=== PATIENT | male | born 1980 | race Caucasian/White ===

== ENCOUNTER 2018-06-10 15:56 | Inpatient (IN) | payer OTHER ==
[2018-06-10] MEDS ORDERED: ONDANSETRON 4 MG INJ IV (17:30)
[2018-06-10] MEDS ORDERED: DOCUSATE SODIUM 100 MG CAP PO (17:30)
[2018-06-10] MEDS ORDERED: ACETAMINOPHEN 325 MG TAB PO (17:30)
[2018-06-10] MEDS ORDERED: MAGNESIUM HYDROXIDE 30ML CUP PO (17:30)
[2018-06-10] MEDS ORDERED: NACL 0.9% 3 ML SYG IV (17:30)
[2018-06-10] MEDS: FUROSEMIDE 40 MG INJ IV (18:00)
[2018-06-10] MEDS: GUAIFENESIN/DM 5ML CUP PO (19:50)
[2018-06-10] MEDS: FAMOTIDINE 20 MG TAB PO (20:19)
[2018-06-11] MEDS: FUROSEMIDE 40 MG INJ IV ×3 (05:35→17:36)
[2018-06-11 05:59] LABS: ADD MAN DIFF? NO
[2018-06-11 06:09] LABS: WHITE BLOOD COUNT 5.7 10^3/ul (4.8-10.8)
[2018-06-11 06:09] LABS: BASOPHIL # 0.1 10^3/ul (0.0-0.1); BASOPHILS % 0.9 % (0.0-2.0); EOSINOPHILS # 0.1 10^3/ul (0.0-0.5); EOSINOPHILS % 1.1 % (0.0-7.0); HEMATOCRIT 39.8 % (42.0-52.0); HEMOGLOBIN 12.6 g/dl (14.0-18.0); LYMPHOCYTES # 1.5 10^3/ul (0.8-2.9); LYMPHOCYTES % 25.9 % (15.0-51.0); MEAN CORPUSCULAR HEMOGLOBIN 27.7 pg (29.0-33.0); MEAN CORPUSCULAR HGB CONC 31.7 g/dl (32.0-37.0); MEAN CORPUSCULAR VOLUME 87.5 fl (82.0-101.0); MEAN PLATELET VOLUME 9.8 fl (7.4-10.4); MONOCYTE # 0.5 10^3/ul (0.3-0.9); MONOCYTES % 8.6 % (0.0-11.0); NEUTROPHIL # 3.6 10^3/ul (1.6-7.5); NEUTROPHILS % 63.3 % (39.0-77.0); PLATELET COUNT 319 10^3/UL (140-415); RED BLOOD COUNT 4.55 10^6/ul (4.70-6.10); RED CELL DISTRIBUTION WIDTH 14.4 % (11.5-14.5)
[2018-06-11 06:43] LABS: B-TYPE NATRIURETIC PEPTIDE 5670 PG/ML (0-125)
[2018-06-11 06:44] LABS: ALANINE AMINOTRANSFERASE 41 IU/L (13-69); ALBUMIN 3.6 g/dl (3.3-4.9); ALBUMIN/GLOBULIN RATIO 1.09; ALKALINE PHOSPHATASE 68 IU/L (42-121); ANION GAP 14 (5-13); ASPARTATE AMINO TRANSFERASE 35 IU/L (15-46); BILIRUBIN,INDIRECT 0.5 mg/dl (0-1.1); BILIRUBIN,TOTAL 0.5 mg/dl (0.2-1.3); BLOOD UREA NITROGEN 26 mg/dl (7-20); CALCIUM 9.1 mg/dl (8.4-10.2); CARBON DIOXIDE 26 mmol/L (21-31); CHLORIDE 103 mmol/L (97-110); CREATININE 1.06 mg/dl (0.61-1.24); Estimated GFR > 60 mL/min (>60); GLUCOSE 108 mg/dl (70-220); MAGNESIUM 1.9 mg/dl (1.7-2.5); SODIUM 143 mmol/L (135-144); TOTAL PROTEIN 6.9 g/dl (6.1-8.1)
[2018-06-11 07:45] LABS: HEMOGLOBIN A1C 5.5 % (0-5.9)
[2018-06-11] MEDS: FAMOTIDINE 20 MG TAB PO ×2 (08:24→20:26)
[2018-06-11] MEDS: LOSARTAN 25 MG TAB PO (08:25)
[2018-06-11] MEDS: ASPIRIN 81 MG TAB PO (08:25)
[2018-06-11] MEDS: ENOXAPARIN 40 MG/0.4 ML SYG SC (08:32)
[2018-06-12] MEDS: FUROSEMIDE 40 MG INJ IV ×2 (05:21→17:36)
[2018-06-12 06:15] LABS: ADD MAN DIFF? NO
[2018-06-12 06:19] LABS: BASOPHIL # 0.1 10^3/ul (0.0-0.1); BASOPHILS % 1.1 % (0.0-2.0); EOSINOPHILS # 0.1 10^3/ul (0.0-0.5); EOSINOPHILS % 1.8 % (0.0-7.0); HEMOGLOBIN 12.5 g/dl (14.0-18.0); LYMPHOCYTES # 1.6 10^3/ul (0.8-2.9); LYMPHOCYTES % 27.7 % (15.0-51.0); MEAN CORPUSCULAR HEMOGLOBIN 27.5 pg (29.0-33.0); MEAN CORPUSCULAR HGB CONC 31.3 g/dl (32.0-37.0); MEAN CORPUSCULAR VOLUME 87.9 fl (82.0-101.0); MONOCYTE # 0.5 10^3/ul (0.3-0.9); MONOCYTES % 9.1 % (0.0-11.0); NEUTROPHIL # 3.4 10^3/ul (1.6-7.5); NEUTROPHILS % 59.9 % (39.0-77.0); PLATELET COUNT 340 10^3/UL (140-415); RED BLOOD COUNT 4.55 10^6/ul (4.70-6.10); RED CELL DISTRIBUTION WIDTH 14.6 % (11.5-14.5)
[2018-06-12 06:19] LABS: WHITE BLOOD COUNT 5.7 10^3/ul (4.8-10.8)
[2018-06-12 06:37] LABS: ALBUMIN 3.5 g/dl (3.3-4.9); ANION GAP 10 (5-13); BLOOD UREA NITROGEN 28 mg/dl (7-20); CALCIUM 9.1 mg/dl (8.4-10.2); CARBON DIOXIDE 31 mmol/L (21-31); CHLORIDE 101 mmol/L (97-110); CREATININE 1.09 mg/dl (0.61-1.24); GLUCOSE 87 mg/dl (70-220); MAGNESIUM 1.9 mg/dl (1.7-2.5); PHOSPHORUS 5.1 mg/dl (2.5-4.9); SODIUM 142 mmol/L (135-144)
[2018-06-12] MEDS: ASPIRIN 81 MG TAB PO (08:57)
[2018-06-12] MEDS: FAMOTIDINE 20 MG TAB PO ×2 (08:58→20:54)
[2018-06-12] MEDS: LOSARTAN 25 MG TAB PO (08:59)
[2018-06-12] MEDS: ENOXAPARIN 40 MG/0.4 ML SYG SC (09:07)
[2018-06-12] MEDS: SPIRONOLACTONE 50 MG TAB PO (10:56)
[2018-06-12 18:44] LABS: TROPONIN-I < 0.012 ng/ml (0.000-0.120)
[2018-06-13 01:08] LABS: TROPONIN-I 0.017 ng/ml (0.000-0.120)
[2018-06-13] MEDS: FUROSEMIDE 40 MG INJ IV (05:26)
[2018-06-13] MEDS: FAMOTIDINE 20 MG TAB PO ×2 (08:37→20:45)
[2018-06-13] MEDS: ASPIRIN 81 MG TAB PO (08:37)
[2018-06-13] MEDS: SPIRONOLACTONE 50 MG TAB PO (08:39)
[2018-06-13] MEDS: LOSARTAN 25 MG TAB PO (08:39)
[2018-06-13] MEDS: ENOXAPARIN 40 MG/0.4 ML SYG SC (08:45)
[2018-06-13 13:09] LABS: TROPONIN-I < 0.012 ng/ml (0.000-0.120)
[2018-06-13 19:43] LABS: TROPONIN-I 0.018 ng/ml (0.000-0.120)
[2018-06-14 06:06] LABS: ADD MAN DIFF? NO
[2018-06-14 06:12] LABS: WHITE BLOOD COUNT 5.3 10^3/ul (4.8-10.8)
[2018-06-14 06:12] LABS: BASOPHIL # 0.1 10^3/ul (0.0-0.1); BASOPHILS % 1.1 % (0.0-2.0); EOSINOPHILS # 0.1 10^3/ul (0.0-0.5); EOSINOPHILS % 2.3 % (0.0-7.0); HEMATOCRIT 40.2 % (42.0-52.0); HEMOGLOBIN 12.7 g/dl (14.0-18.0); LYMPHOCYTES # 1.9 10^3/ul (0.8-2.9); LYMPHOCYTES % 35.5 % (15.0-51.0); MEAN CORPUSCULAR HEMOGLOBIN 28.1 pg (29.0-33.0); MEAN CORPUSCULAR HGB CONC 31.6 g/dl (32.0-37.0); MEAN CORPUSCULAR VOLUME 88.9 fl (82.0-101.0); MEAN PLATELET VOLUME 9.8 fl (7.4-10.4); MONOCYTE # 0.6 10^3/ul (0.3-0.9); MONOCYTES % 10.7 % (0.0-11.0); NEUTROPHIL # 2.7 10^3/ul (1.6-7.5); NEUTROPHILS % 50.2 % (39.0-77.0); PLATELET COUNT 345 10^3/UL (140-415); RED BLOOD COUNT 4.52 10^6/ul (4.70-6.10); RED CELL DISTRIBUTION WIDTH 14.8 % (11.5-14.5)
[2018-06-14 06:51] LABS: ALBUMIN 3.6 g/dl (3.3-4.9); ANION GAP 9 (5-13); BLOOD UREA NITROGEN 29 mg/dl (7-20); CALCIUM 9.1 mg/dl (8.4-10.2); CARBON DIOXIDE 34 mmol/L (21-31); CHLORIDE 98 mmol/L (97-110); GLUCOSE 81 mg/dl (70-220); MAGNESIUM 2.3 mg/dl (1.7-2.5); PHOSPHORUS 4.7 mg/dl (2.5-4.9); POTASSIUM 4.4 mmol/L (3.5-5.1); SODIUM 141 mmol/L (135-144)
[2018-06-14] MEDS: FUROSEMIDE 40 MG TAB PO (08:24)
[2018-06-14] MEDS: FAMOTIDINE 20 MG TAB PO ×2 (08:24→20:54)
[2018-06-14] MEDS: ASPIRIN 81 MG TAB PO (08:25)
[2018-06-14] MEDS: SPIRONOLACTONE 50 MG TAB PO (08:25)
[2018-06-14] MEDS: LOSARTAN 25 MG TAB PO (08:26)
[2018-06-14] MEDS: ENOXAPARIN 40 MG/0.4 ML SYG SC (08:30)
[2018-06-14] MEDS ORDERED: FUROSEMIDE 40 MG TAB PO (09:00)
[2018-06-15] MEDS: FAMOTIDINE 20 MG TAB PO (08:06)
[2018-06-15] MEDS: FUROSEMIDE 40 MG TAB PO (08:06)
[2018-06-15] MEDS: ASPIRIN 81 MG TAB PO (08:07)
[2018-06-15] MEDS: LOSARTAN 25 MG TAB PO (08:07)
[2018-06-15] MEDS: SPIRONOLACTONE 50 MG TAB PO (08:08)
[2018-06-15] MEDS: ENOXAPARIN 40 MG/0.4 ML SYG SC (08:12)
== END 2018-06-15 16:40 | disposition home or self-care (01) | DRG 293 ==
LOC: 6WM 15:56
DX: I11.0 Hypertensive heart disease with heart failure (principal); I50.23 Acute on chronic systolic (congestive) heart failure; I34.0 Nonrheumatic mitral (valve) insufficiency; E66.9 Obesity, unspecified; I42.8 Other cardiomyopathies; Z68.32 Body mass index [BMI] 32.0-32.9, adult; Z98.84 Bariatric surgery status
CPT/HCPCS: 71045; 80053; 80069; 82962; 83036; 83735; 83880; 84443; 84484; 85025; 93306; 97161; 97165

== ENCOUNTER 2018-06-24 05:29 | Inpatient (IN) | payer OTHER ==
[2018-06-24 06:46] LABS: ADD MAN DIFF? NO
[2018-06-24 06:48] LABS: WHITE BLOOD COUNT 5.8 10^3/ul (4.8-10.8)
[2018-06-24 06:48] LABS: BASOPHIL # 0.1 10^3/ul (0.0-0.1); BASOPHILS % 0.9 % (0.0-2.0); EOSINOPHILS # 0.1 10^3/ul (0.0-0.5); HEMATOCRIT 40.2 % (42.0-52.0); HEMOGLOBIN 12.7 g/dl (14.0-18.0); LYMPHOCYTES # 1.2 10^3/ul (0.8-2.9); LYMPHOCYTES % 20.2 % (15.0-51.0); MEAN CORPUSCULAR HGB CONC 31.6 g/dl (32.0-37.0); MEAN CORPUSCULAR VOLUME 88.7 fl (82.0-101.0); MEAN PLATELET VOLUME 10.7 fl (7.4-10.4); MONOCYTE # 0.5 10^3/ul (0.3-0.9); MONOCYTES % 7.9 % (0.0-11.0); NEUTROPHIL # 4.1 10^3/ul (1.6-7.5); NEUTROPHILS % 69.8 % (39.0-77.0); PLATELET COUNT 204 10^3/UL (140-415); RED BLOOD COUNT 4.53 10^6/ul (4.70-6.10); RED CELL DISTRIBUTION WIDTH 15.4 % (11.5-14.5)
[2018-06-24 07:07] LABS: ALANINE AMINOTRANSFERASE 29 IU/L (13-69); ALBUMIN 3.8 g/dl (3.3-4.9); ALBUMIN/GLOBULIN RATIO 1.11; ALKALINE PHOSPHATASE 69 IU/L (42-121); ANION GAP 5 (5-13); ASPARTATE AMINO TRANSFERASE 35 IU/L (15-46); BILIRUBIN,INDIRECT 0.6 mg/dl (0-1.1); BILIRUBIN,TOTAL 0.6 mg/dl (0.2-1.3); BLOOD UREA NITROGEN 20 mg/dl (7-20); CARBON DIOXIDE 24 mmol/L (21-31); CHLORIDE 114 mmol/L (97-110); CREATININE 0.76 mg/dl (0.61-1.24); Estimated GFR > 60 mL/min (>60); GLUCOSE 102 mg/dl (70-220); PARTIAL THROMBOPLASTIN TIME 40.9 Sec (23.0-35.0); POTASSIUM 4.5 mmol/L (3.5-5.1); SODIUM 143 mmol/L (135-144); TOTAL PROTEIN 7.2 g/dl (6.1-8.1)
[2018-06-24] MEDS: FUROSEMIDE 40 MG INJ IV (07:15)
[2018-06-24 07:18] LABS: B-TYPE NATRIURETIC PEPTIDE 6100 PG/ML (0-125); TROPONIN-I 0.022 ng/ml (0.000-0.120)
[2018-06-24 07:24] LABS: INR 1.11; PROTIME 14.4 Sec (11.9-14.9); PT RATIO 1.1
[2018-06-24] MEDS ORDERED: ONDANSETRON 4 MG INJ IV (09:00)
[2018-06-24] MEDS ORDERED: ACETAMINOPHEN 325 MG TAB PO (09:00)
[2018-06-24 16:48] LABS: AMPHETAMINE/METHAMPHETAMINE Negative (NEGATIVE); BARBITURATES Negative (NEGATIVE); BENZODIAZEPINES Negative (NEGATIVE); CANNABINOIDS Negative (NEGATIVE); COCAINE Negative (NEGATIVE); OPIATES Negative (NEGATIVE)
[2018-06-24] MEDS: DOCUSATE SODIUM 100 MG CAP PO (21:38)
[2018-06-24 23:16] LABS: CREATINE KINASE 110 IU/L (23-200)
[2018-06-24 23:29] LABS: CK INDEX 0.8; CK-MB 0.93 ng/ml (0.0-2.4); TROPONIN-I 0.021 ng/ml (0.000-0.120)
[2018-06-25] MEDS: FUROSEMIDE 20 MG INJ IV (05:33)
[2018-06-25 05:52] LABS: ADD MAN DIFF? NO
[2018-06-25 06:01] LABS: WHITE BLOOD COUNT 4.7 10^3/ul (4.8-10.8)
[2018-06-25 06:01] LABS: BASOPHILS % 0.6 % (0.0-2.0); EOSINOPHILS # 0.1 10^3/ul (0.0-0.5); EOSINOPHILS % 2.1 % (0.0-7.0); HEMATOCRIT 39.1 % (42.0-52.0); HEMOGLOBIN 12.3 g/dl (14.0-18.0); LYMPHOCYTES # 1.4 10^3/ul (0.8-2.9); LYMPHOCYTES % 28.8 % (15.0-51.0); MEAN CORPUSCULAR HEMOGLOBIN 27.9 pg (29.0-33.0); MEAN CORPUSCULAR HGB CONC 31.5 g/dl (32.0-37.0); MEAN CORPUSCULAR VOLUME 88.7 fl (82.0-101.0); MEAN PLATELET VOLUME 10.2 fl (7.4-10.4); MONOCYTE # 0.4 10^3/ul (0.3-0.9); MONOCYTES % 8.9 % (0.0-11.0); NEUTROPHIL # 2.8 10^3/ul (1.6-7.5); NEUTROPHILS % 59.4 % (39.0-77.0); PLATELET COUNT 191 10^3/UL (140-415); RED BLOOD COUNT 4.41 10^6/ul (4.70-6.10); RED CELL DISTRIBUTION WIDTH 15.2 % (11.5-14.5)
[2018-06-25 06:26] LABS: ANION GAP 5 (5-13); BLOOD UREA NITROGEN 24 mg/dl (7-20); CALCIUM 9.5 mg/dl (8.4-10.2); CARBON DIOXIDE 29 mmol/L (21-31); CHLORIDE 106 mmol/L (97-110); CREATININE 1.08 mg/dl (0.61-1.24); Estimated GFR > 60 mL/min (>60); GLUCOSE 94 mg/dl (70-220); MAGNESIUM 2.1 mg/dl (1.7-2.5); POTASSIUM 4.3 mmol/L (3.5-5.1); SODIUM 140 mmol/L (135-144)
[2018-06-25 06:29] LABS: CHOLESTEROL 113 mg/dl (100-200)
[2018-06-25 06:29] LABS: CHOL/HDL RATIO 3.6 RATIO; CREATINE KINASE 97 IU/L (23-200); HDL CHOLESTEROL 31 mg/dl (28-63); LDL CHOLESTEROL,CALCULATED 71 mg/dl; TRIGLYCERIDES 56 mg/dl (0-149)
[2018-06-25 06:38] LABS: CK INDEX 0.8; CK-MB 0.79 ng/ml (0.0-2.4)
[2018-06-25 06:39] LABS: IRON 48 ug/dl (35-150)
[2018-06-25 06:48] LABS: % IRON SATURATION 15 % SAT (22-52); TOTAL IRON BINDING CAPACITY 318 ug/dl (241-421)
[2018-06-25] MEDS ORDERED: FUROSEMIDE 20 MG INJ IV (09:00)
[2018-06-25] MEDS: FAMOTIDINE 20 MG TAB PO (09:04)
[2018-06-25] MEDS: SPIRONOLACTONE 25 MG TAB PO (09:04)
[2018-06-25] MEDS: DOCUSATE SODIUM 100 MG CAP PO (09:04)
[2018-06-25] MEDS: ASPIRIN 81 MG TAB PO (09:04)
[2018-06-25] MEDS: LOSARTAN 25 MG TAB PO (10:44)
== END 2018-06-25 17:18 | disposition home or self-care (01) | DRG 293 ==
LOC: E/R 05:29 → 6WM 08:32
DX: I11.0 Hypertensive heart disease with heart failure (principal); I50.23 Acute on chronic systolic (congestive) heart failure; F15.10 Other stimulant abuse, uncomplicated; Z98.84 Bariatric surgery status; D64.9 Anemia, unspecified
CPT/HCPCS: 36415; 71045; 80048; 80053; 80061; 80307; 82550; 82553; 83540; 83735; 83880; 84484; 85025; 85610; 85730; 93005; 96374; 99285-25

== ENCOUNTER 2018-07-10 22:17 | Inpatient (IN) | payer OTHER ==
[2018-07-10 23:23] LABS: ADD MAN DIFF? NO
[2018-07-10 23:25] LABS: WHITE BLOOD COUNT 7.5 10^3/ul (4.8-10.8)
[2018-07-10 23:25] LABS: BASOPHIL # 0.1 10^3/ul (0.0-0.1); BASOPHILS % 0.7 % (0.0-2.0); EOSINOPHILS # 0.1 10^3/ul (0.0-0.5); EOSINOPHILS % 1.1 % (0.0-7.0); HEMATOCRIT 41.4 % (42.0-52.0); HEMOGLOBIN 13.1 g/dl (14.0-18.0); LYMPHOCYTES # 1.5 10^3/ul (0.8-2.9); LYMPHOCYTES % 20.5 % (15.0-51.0); MEAN CORPUSCULAR HEMOGLOBIN 27.7 pg (29.0-33.0); MEAN CORPUSCULAR HGB CONC 31.6 g/dl (32.0-37.0); MEAN CORPUSCULAR VOLUME 87.5 fl (82.0-101.0); MEAN PLATELET VOLUME 9.8 fl (7.4-10.4); MONOCYTE # 0.6 10^3/ul (0.3-0.9); MONOCYTES % 7.7 % (0.0-11.0); NEUTROPHIL # 5.2 10^3/ul (1.6-7.5); NEUTROPHILS % 69.7 % (39.0-77.0); PLATELET COUNT 221 10^3/UL (140-415); RED BLOOD COUNT 4.73 10^6/ul (4.70-6.10); RED CELL DISTRIBUTION WIDTH 15.6 % (11.5-14.5)
[2018-07-10 23:41] LABS: ANION GAP 8 (5-13); BLOOD UREA NITROGEN 21 mg/dl (7-20); CARBON DIOXIDE 23 mmol/L (21-31); CHLORIDE 109 mmol/L (97-110); Estimated GFR > 60 mL/min (>60); GLUCOSE 78 mg/dl (70-220); POTASSIUM 3.8 mmol/L (3.5-5.1); SODIUM 140 mmol/L (135-144)
[2018-07-10 23:45] LABS: INR 1.24; PROTIME 15.7 Sec (11.9-14.9); PT RATIO 1.2
[2018-07-10 23:53] LABS: B-TYPE NATRIURETIC PEPTIDE 6680 PG/ML (0-125); TROPONIN-I 0.016 ng/ml (0.000-0.120)
[2018-07-11] MEDS ORDERED: ACETAMINOPHEN 325 MG TAB PO ×2 (02:30→03:00)
[2018-07-11] MEDS ORDERED: ONDANSETRON 4 MG INJ IV (02:30)
[2018-07-11] MEDS ORDERED: NACL 0.9% 3 ML SYG IV (03:00)
[2018-07-11] MEDS ORDERED: DOCUSATE SODIUM 100 MG CAP PO (03:00)
[2018-07-11] MEDS ORDERED: BISACODYL (EC) 5 MG TAB PO (03:00)
[2018-07-11] MEDS ORDERED: ONDANSETRON 4 MG TAB PO (03:00)
[2018-07-11] MEDS ORDERED: ALBUTEROL/IPRATROPIUM (NEB) 3 ML AMP HHN (03:00)
[2018-07-11] MEDS: FUROSEMIDE 40 MG INJ IV ×3 (03:09→17:24)
[2018-07-11] MEDS: ALBUTEROL 0.5% (NEB) 2.5 MG/0.5 ML AMP INH (03:43)
[2018-07-11] MEDS: IPRATROPIUM (NEB) 0.5 MG/2.5 ML AMP INH (03:43)
[2018-07-11 06:02] LABS: ADD MAN DIFF? NO
[2018-07-11 06:06] LABS: WHITE BLOOD COUNT 8.5 10^3/ul (4.8-10.8)
[2018-07-11 06:06] LABS: BASOPHIL # 0.1 10^3/ul (0.0-0.1); BASOPHILS % 0.6 % (0.0-2.0); EOSINOPHILS # 0.1 10^3/ul (0.0-0.5); EOSINOPHILS % 1.2 % (0.0-7.0); HEMATOCRIT 42.5 % (42.0-52.0); HEMOGLOBIN 13.3 g/dl (14.0-18.0); LYMPHOCYTES # 1.3 10^3/ul (0.8-2.9); LYMPHOCYTES % 15.6 % (15.0-51.0); MEAN CORPUSCULAR HEMOGLOBIN 27.7 pg (29.0-33.0); MEAN CORPUSCULAR HGB CONC 31.3 g/dl (32.0-37.0); MEAN CORPUSCULAR VOLUME 88.4 fl (82.0-101.0); MEAN PLATELET VOLUME 10.2 fl (7.4-10.4); MONOCYTE # 0.6 10^3/ul (0.3-0.9); MONOCYTES % 6.6 % (0.0-11.0); NEUTROPHIL # 6.4 10^3/ul (1.6-7.5); NEUTROPHILS % 75.6 % (39.0-77.0); PLATELET COUNT 225 10^3/UL (140-415); RED BLOOD COUNT 4.81 10^6/ul (4.70-6.10); RED CELL DISTRIBUTION WIDTH 15.6 % (11.5-14.5)
[2018-07-11 06:40] LABS: TROPONIN-I 0.018 ng/ml (0.000-0.120)
[2018-07-11 06:46] LABS: ALANINE AMINOTRANSFERASE 18 IU/L (13-69); ALBUMIN/GLOBULIN RATIO 1.25; ALKALINE PHOSPHATASE 66 IU/L (42-121); ANION GAP 9 (5-13); ASPARTATE AMINO TRANSFERASE 28 IU/L (15-46); BILIRUBIN,INDIRECT 0.7 mg/dl (0-1.1); BILIRUBIN,TOTAL 0.7 mg/dl (0.2-1.3); BLOOD UREA NITROGEN 20 mg/dl (7-20); CALCIUM 9.3 mg/dl (8.4-10.2); CARBON DIOXIDE 27 mmol/L (21-31); CHLORIDE 108 mmol/L (97-110); CREATININE 1.14 mg/dl (0.61-1.24); Estimated GFR > 60 mL/min (>60); GLUCOSE 114 mg/dl (70-220); POTASSIUM 3.4 mmol/L (3.5-5.1); SODIUM 144 mmol/L (135-144); TOTAL PROTEIN 7.2 g/dl (6.1-8.1)
[2018-07-11 06:47] LABS: CREATINE KINASE 126 IU/L (23-200)
[2018-07-11 06:56] LABS: CK-MB 2.47 ng/ml (0.0-2.4)
[2018-07-11 07:05] LABS: ETHANOL < 10.0 mg/dl (0-0)
[2018-07-11] MEDS: ASPIRIN 81 MG TAB PO (08:23)
[2018-07-11] MEDS: SPIRONOLACTONE 25 MG TAB PO (08:24)
[2018-07-11] MEDS: LOSARTAN 25 MG TAB PO (08:25)
[2018-07-11] MEDS: ENOXAPARIN 30 MG/0.3 ML SYG SC (08:27)
[2018-07-11 11:25] LABS: CREATINE KINASE 104 IU/L (23-200)
[2018-07-11 11:27] LABS: BARBITURATES Negative (NEGATIVE); BENZODIAZEPINES Negative (NEGATIVE); CANNABINOIDS Negative (NEGATIVE); COCAINE Negative (NEGATIVE); OPIATES Negative (NEGATIVE)
[2018-07-11 11:30] LABS: AMPHETAMINE/METHAMPHETAMINE Positive (NEGATIVE)
[2018-07-11 11:38] LABS: CK-MB 1.07 ng/ml (0.0-2.4); TROPONIN-I < 0.012 ng/ml (0.000-0.120)
[2018-07-11 19:16] LABS: TROPONIN-I < 0.012 ng/ml (0.000-0.120)
[2018-07-12] MEDS: FUROSEMIDE 40 MG INJ IV ×2 (05:41→17:24)
[2018-07-12 06:03] LABS: ADD MAN DIFF? NO
[2018-07-12 06:11] LABS: WHITE BLOOD COUNT 4.5 10^3/ul (4.8-10.8)
[2018-07-12 06:11] LABS: BASOPHIL # 0.1 10^3/ul (0.0-0.1); BASOPHILS % 1.1 % (0.0-2.0); EOSINOPHILS # 0.3 10^3/ul (0.0-0.5); EOSINOPHILS % 6.2 % (0.0-7.0); HEMATOCRIT 40.2 % (42.0-52.0); HEMOGLOBIN 12.9 g/dl (14.0-18.0); LYMPHOCYTES # 1.4 10^3/ul (0.8-2.9); LYMPHOCYTES % 30.9 % (15.0-51.0); MEAN CORPUSCULAR HEMOGLOBIN 27.9 pg (29.0-33.0); MEAN CORPUSCULAR HGB CONC 32.1 g/dl (32.0-37.0); MEAN CORPUSCULAR VOLUME 86.8 fl (82.0-101.0); MEAN PLATELET VOLUME 10.2 fl (7.4-10.4); MONOCYTE # 0.5 10^3/ul (0.3-0.9); MONOCYTES % 10.2 % (0.0-11.0); NEUTROPHIL # 2.3 10^3/ul (1.6-7.5); NEUTROPHILS % 51.4 % (39.0-77.0); PLATELET COUNT 195 10^3/UL (140-415); RED BLOOD COUNT 4.63 10^6/ul (4.70-6.10); RED CELL DISTRIBUTION WIDTH 15.9 % (11.5-14.5)
[2018-07-12 06:49] LABS: CHOLESTEROL 80 mg/dl (100-200); PHOSPHORUS 4.6 mg/dl (2.5-4.9)
[2018-07-12 06:49] LABS: CHOL/HDL RATIO 3.2 RATIO; HDL CHOLESTEROL 25 mg/dl (28-63); LDL CHOLESTEROL,CALCULATED 45 mg/dl; MAGNESIUM 1.5 mg/dl (1.7-2.5); TRIGLYCERIDES 48 mg/dl (0-149)
[2018-07-12 06:50] LABS: TROPONIN-I 0.014 ng/ml (0.000-0.120)
[2018-07-12 06:59] LABS: ANION GAP 7 (5-13); BLOOD UREA NITROGEN 18 mg/dl (7-20); CALCIUM 8.9 mg/dl (8.4-10.2); CARBON DIOXIDE 30 mmol/L (21-31); CHLORIDE 104 mmol/L (97-110); CREATININE 1.01 mg/dl (0.61-1.24); Estimated GFR > 60 mL/min (>60); GLUCOSE 85 mg/dl (70-220); POTASSIUM 3.9 mmol/L (3.5-5.1); SODIUM 141 mmol/L (135-144)
[2018-07-12] MEDS: SPIRONOLACTONE 25 MG TAB PO (09:13)
[2018-07-12] MEDS: ASPIRIN 81 MG TAB PO (09:14)
[2018-07-12] MEDS: LOSARTAN 25 MG TAB PO (09:14)
[2018-07-12] MEDS: ENOXAPARIN 30 MG/0.3 ML SYG SC (09:24)
[2018-07-12] MEDS: MAGNESIUM OXIDE 400 MG TAB PO (20:29)
[2018-07-13] MEDS: FUROSEMIDE 40 MG INJ IV (05:31)
[2018-07-13 07:40] LABS: ANION GAP 9 (5-13); BLOOD UREA NITROGEN 24 mg/dl (7-20); CARBON DIOXIDE 32 mmol/L (21-31); CHLORIDE 100 mmol/L (97-110); CREATININE 0.93 mg/dl (0.61-1.24); Estimated GFR > 60 mL/min (>60); GLUCOSE 79 mg/dl (70-220); POTASSIUM 3.8 mmol/L (3.5-5.1); SODIUM 141 mmol/L (135-144)
[2018-07-13 08:15] LABS: MAGNESIUM 1.7 mg/dl (1.7-2.5)
[2018-07-13 08:15] LABS: PHOSPHORUS 4.4 mg/dl (2.5-4.9)
[2018-07-13] MEDS: LOSARTAN 25 MG TAB PO (08:19)
[2018-07-13] MEDS: ASPIRIN 81 MG TAB PO (08:20)
[2018-07-13] MEDS: SPIRONOLACTONE 25 MG TAB PO (08:20)
[2018-07-13] MEDS: MAGNESIUM OXIDE 400 MG TAB PO (08:20)
[2018-07-13] MEDS: ENOXAPARIN 30 MG/0.3 ML SYG SC (08:25)
== END 2018-07-13 16:29 | disposition home or self-care (01) | DRG 293 ==
LOC: E/R 22:17 → TEL 07-11 02:08
DX: I11.0 Hypertensive heart disease with heart failure (principal); I50.23 Acute on chronic systolic (congestive) heart failure; I42.7 Cardiomyopathy due to drug and external agent; Z68.33 Body mass index [BMI] 33.0-33.9, adult; D64.9 Anemia, unspecified; F15.129 Other stimulant abuse with intoxication, unspecified; G47.33 Obstructive sleep apnea (adult) (pediatric); I44.0 Atrioventricular block, first degree; Z98.84 Bariatric surgery status; J40 Bronchitis, not specified as acute or chronic; E66.9 Obesity, unspecified; I34.0 Nonrheumatic mitral (valve) insufficiency; F15.90 Other stimulant use, unspecified, uncomplicated
CPT/HCPCS: 36415; 71045; 80048; 80053; 80061; 80307; 82550; 82553; 83735; 83880; 84100; 84484; 85025; 85610; 93005; 94644; 99285-25

== ENCOUNTER 2018-07-31 12:28 | Inpatient (IN) | payer OTHER ==
[2018-07-31 13:05] LABS: ADD MAN DIFF? NO
[2018-07-31] MEDS: KETOROLAC 15 MG INJ IV (13:07)
[2018-07-31] MEDS: CEFEPIME 2GM/50 ML (PMX) 50 ML IVPB (13:07)
[2018-07-31] MEDS: VANCOMYCIN 1 GM (PMX) 250 ML IVPB (13:07)
[2018-07-31] MEDS: ACETAMINOPHEN 325 MG TAB PO (13:08)
[2018-07-31 13:12] LABS: WHITE BLOOD COUNT 6.1 10^3/ul (4.8-10.8)
[2018-07-31 13:12] LABS: BASOPHILS % 0.7 % (0.0-2.0); EOSINOPHILS % 0.3 % (0.0-7.0); HEMATOCRIT 45.5 % (42.0-52.0); LYMPHOCYTES # 0.9 10^3/ul (0.8-2.9); LYMPHOCYTES % 14.5 % (15.0-51.0); MEAN CORPUSCULAR HEMOGLOBIN 26.8 pg (29.0-33.0); MEAN CORPUSCULAR HGB CONC 30.8 g/dl (32.0-37.0); MEAN PLATELET VOLUME 9.9 fl (7.4-10.4); MONOCYTE # 0.5 10^3/ul (0.3-0.9); MONOCYTES % 8.9 % (0.0-11.0); NEUTROPHIL # 4.6 10^3/ul (1.6-7.5); NEUTROPHILS % 75.4 % (39.0-77.0); PLATELET COUNT 223 10^3/UL (140-415); RED BLOOD COUNT 5.23 10^6/ul (4.70-6.10); RED CELL DISTRIBUTION WIDTH 15.7 % (11.5-14.5)
[2018-07-31 13:30] LABS: INR 1.12; PROTIME 14.5 Sec (11.9-14.9); PT RATIO 1.1
[2018-07-31 13:31] LABS: PARTIAL THROMBOPLASTIN TIME 38.3 Sec (23.0-35.0)
[2018-07-31 13:33] LABS: ALANINE AMINOTRANSFERASE 17 IU/L (13-69); ALBUMIN 4.4 g/dl (3.3-4.9); ALBUMIN/GLOBULIN RATIO 1.25; ALKALINE PHOSPHATASE 74 IU/L (42-121); ANION GAP 11 (5-13); ASPARTATE AMINO TRANSFERASE 30 IU/L (15-46); BILIRUBIN,INDIRECT 1.1 mg/dl (0-1.1); BILIRUBIN,TOTAL 1.1 mg/dl (0.2-1.3); BLOOD UREA NITROGEN 17 mg/dl (7-20); CALCIUM 9.1 mg/dl (8.4-10.2); CARBON DIOXIDE 30 mmol/L (21-31); CHLORIDE 96 mmol/L (97-110); CREATININE 1.07 mg/dl (0.61-1.24); Estimated GFR > 60 mL/min (>60); GLUCOSE 114 mg/dl (70-220); POTASSIUM 3.9 mmol/L (3.5-5.1); SODIUM 137 mmol/L (135-144); TOTAL PROTEIN 7.9 g/dl (6.1-8.1)
[2018-07-31] MEDS: FUROSEMIDE 40 MG INJ IV (13:41)
[2018-07-31 13:44] LABS: B-TYPE NATRIURETIC PEPTIDE 8250 PG/ML (0-125)
[2018-07-31 14:06] LABS: TROPONIN-I 0.176 ng/ml (0.000-0.120)
[2018-07-31] MEDS: ASPIRIN 81 MG TAB PO (15:25)
[2018-07-31] MEDS ORDERED: ACETAMINOPHEN 325 MG TAB PO (15:30)
[2018-07-31] MEDS ORDERED: ONDANSETRON 4 MG INJ IV ×2 (15:30→17:30)
[2018-07-31 15:36] LABS: ADD UMIC YES; UR ASCORBIC ACID NEGATIVE (NEGATIVE); UR BILIRUBIN (Dip) NEGATIVE (NEGATIVE); UR BLOOD (Dip) 2+ mg/dL (NEGATIVE); UR CLARITY CLEAR (CLEAR); UR COLOR YELLOW (YELLOW); UR GLUCOSE (Dip) NEGATIVE (NEGATIVE); UR KETONES (Dip) NEGATIVE (NEGATIVE); UR LEUKOCYTE ESTERASE (Dip) NEGATIVE Leu/ul (NEGATIVE); UR NITRITE (Dip) NEGATIVE (NEGATIVE); UR RBC 2 /HPF (0-5); UR TOTAL PROTEIN (Dip) 1+ mg/dl (NEGATIVE); UR UROBILINOGEN (Dip) NEGATIVE (NEGATIVE); UR WBC 4 /HPF (0-5)
[2018-07-31 17:05] LABS: LACTIC ACID 1.1 mmol/L (0.5-2.0)
[2018-07-31] MEDS ORDERED: BISACODYL (EC) 5 MG TAB PO (17:30)
[2018-07-31] MEDS ORDERED: DOCUSATE SODIUM 100 MG CAP PO (17:30)
[2018-07-31] MEDS ORDERED: NACL 0.9% 3 ML SYG IV (17:30)
[2018-07-31] MEDS ORDERED: BISACODYL 10 MG SUPP PR (17:30)
[2018-07-31] MEDS ORDERED: morphine 2 MG INJ IV (17:30)
[2018-07-31] MEDS ORDERED: MAGNESIUM HYDROXIDE 30ML CUP PO (17:30)
[2018-07-31] MEDS: ASPIRIN (EC) 81 MG TAB PO (17:57)
[2018-07-31 18:30] LABS: TROPONIN-I 0.226 ng/ml (0.000-0.120)
[2018-07-31 18:31] LABS: C-REACTIVE PROTEIN 3.6 mg/dl (0.0-0.9)
[2018-07-31 19:26] LABS: ERYTHROCYTE SEDIMENTATION RATE 30 mm/Hr (0-15)
[2018-07-31] MEDS: LEVALBUTEROL (HFA) 15 GM INHALER INH (20:00)
[2018-07-31] MEDS: FUROSEMIDE 40 MG TAB PO (20:33)
[2018-07-31] MEDS: ATORVASTATIN 40 MG TAB PO (20:33)
[2018-07-31] MEDS: FAMOTIDINE 20 MG TAB PO (20:33)
[2018-07-31] MEDS: ENOXAPARIN 100 MG/ML SYG SC (20:47)
[2018-07-31] MEDS ORDERED: FUROSEMIDE 40 MG TAB PO (21:00)
[2018-08-01] MEDS: HYDROCODONE/APAP (5/325) TAB PO (01:09)
[2018-08-01] MEDS: LEVALBUTEROL (HFA) 15 GM INHALER INH ×2 (02:38→10:44)
[2018-08-01] MEDS: FUROSEMIDE 40 MG TAB PO (04:55)
[2018-08-01 06:35] LABS: ADD MAN DIFF? NO
[2018-08-01 06:52] LABS: BASOPHILS % 0.6 % (0.0-2.0); EOSINOPHILS % 0.2 % (0.0-7.0); HEMATOCRIT 44.7 % (42.0-52.0); HEMOGLOBIN 13.9 g/dl (14.0-18.0); LYMPHOCYTES # 0.9 10^3/ul (0.8-2.9); LYMPHOCYTES % 17.1 % (15.0-51.0); MEAN CORPUSCULAR HEMOGLOBIN 27.3 pg (29.0-33.0); MEAN CORPUSCULAR HGB CONC 31.1 g/dl (32.0-37.0); MEAN CORPUSCULAR VOLUME 87.8 fl (82.0-101.0); MEAN PLATELET VOLUME 10.9 fl (7.4-10.4); MONOCYTE # 0.4 10^3/ul (0.3-0.9); MONOCYTES % 7.8 % (0.0-11.0); NEUTROPHIL # 3.8 10^3/ul (1.6-7.5); NEUTROPHILS % 73.9 % (39.0-77.0); PLATELET COUNT 199 10^3/UL (140-415); RED BLOOD COUNT 5.09 10^6/ul (4.70-6.10); RED CELL DISTRIBUTION WIDTH 15.5 % (11.5-14.5)
[2018-08-01 06:52] LABS: WHITE BLOOD COUNT 5.2 10^3/ul (4.8-10.8)
[2018-08-01 06:58] LABS: INR 1.22; PROTIME 15.5 Sec (11.9-14.9); PT RATIO 1.2
[2018-08-01 07:03] LABS: ALANINE AMINOTRANSFERASE 22 IU/L (13-69); ALBUMIN 3.9 g/dl (3.3-4.9); ALBUMIN/GLOBULIN RATIO 1.25; ALKALINE PHOSPHATASE 73 IU/L (42-121); ANION GAP 9 (5-13); ASPARTATE AMINO TRANSFERASE 29 IU/L (15-46); BILIRUBIN,INDIRECT 1.5 mg/dl (0-1.1); BILIRUBIN,TOTAL 1.5 mg/dl (0.2-1.3); BLOOD UREA NITROGEN 18 mg/dl (7-20); CALCIUM 9.1 mg/dl (8.4-10.2); CARBON DIOXIDE 31 mmol/L (21-31); CHLORIDE 96 mmol/L (97-110); CREATININE 1.01 mg/dl (0.61-1.24); Estimated GFR > 60 mL/min (>60); GLUCOSE 92 mg/dl (70-220); MAGNESIUM 1.8 mg/dl (1.7-2.5); PHOSPHORUS 4.4 mg/dl (2.5-4.9); POTASSIUM 4.3 mmol/L (3.5-5.1); SODIUM 136 mmol/L (135-144)
[2018-08-01 07:23] LABS: TROPONIN-I 0.182 ng/ml (0.000-0.120)
[2018-08-01 07:25] LABS: LACTIC ACID 1.5 mmol/L (0.5-2.0)
[2018-08-01 07:33] LABS: HEMOGLOBIN A1C 5.6 % (0-5.9)
[2018-08-01] MEDS: FAMOTIDINE 20 MG TAB PO ×2 (08:27→21:33)
[2018-08-01] MEDS: THIAMINE 100 MG TAB PO (08:27)
[2018-08-01] MEDS: ASPIRIN (EC) 81 MG TAB PO (08:27)
[2018-08-01] MEDS: ENOXAPARIN 100 MG/ML SYG SC (08:30)
[2018-08-01 08:34] LABS: THYROID STIMULATING HORMONE 0.591 MIU/L (0.465-4.680)
[2018-08-01] MEDS: ACETAMINOPHEN 325 MG TAB PO ×2 (10:25→17:09)
[2018-08-01] MEDS ORDERED: CEPASTAT LOZENGE MT (11:30)
[2018-08-01] MEDS: OSELTAMIVIR 75 MG CAP PO ×2 (13:41→21:33)
[2018-08-01] MEDS: CEFTRIAXONE 2 GM/50 ML (PMX) 50 ML IVPB (13:41)
[2018-08-01] MEDS: AZITHROMYCIN 500MG/NS (PMX) 250 ML IVPB (13:41)
[2018-08-01] MEDS: LEVALBUTEROL (NEB) 0.63 MG/3 ML AMP HHN ×2 (14:59→21:48)
[2018-08-01] MEDS: FUROSEMIDE 40 MG INJ IV ×2 (15:18→21:32)
[2018-08-01 18:00] LABS: HIV 1&2 ANTIBODY NEGATIVE (NEGATIVE)
[2018-08-02] MEDS: LEVALBUTEROL (NEB) 0.63 MG/3 ML AMP HHN ×4 (03:21→19:47)
[2018-08-02 05:41] LABS: ADD MAN DIFF? NO
[2018-08-02 05:45] LABS: EOSINOPHILS % 0.8 % (0.0-7.0); HEMATOCRIT 40.2 % (42.0-52.0); HEMOGLOBIN 12.7 g/dl (14.0-18.0); LYMPHOCYTES # 1.1 10^3/ul (0.8-2.9); LYMPHOCYTES % 27.1 % (15.0-51.0); MEAN CORPUSCULAR HEMOGLOBIN 26.8 pg (29.0-33.0); MEAN CORPUSCULAR HGB CONC 31.6 g/dl (32.0-37.0); MEAN PLATELET VOLUME 10.4 fl (7.4-10.4); MONOCYTE # 0.4 10^3/ul (0.3-0.9); MONOCYTES % 11.1 % (0.0-11.0); NEUTROPHIL # 2.3 10^3/ul (1.6-7.5); NEUTROPHILS % 59.7 % (39.0-77.0); PLATELET COUNT 185 10^3/UL (140-415); RED BLOOD COUNT 4.73 10^6/ul (4.70-6.10); RED CELL DISTRIBUTION WIDTH 15.7 % (11.5-14.5)
[2018-08-02 05:45] LABS: WHITE BLOOD COUNT 3.9 10^3/ul (4.8-10.8)
[2018-08-02 06:13] LABS: PROTIME 15.3 Sec (11.9-14.9); PT RATIO 1.2
[2018-08-02 06:17] LABS: ALANINE AMINOTRANSFERASE 18 IU/L (13-69); ALBUMIN 3.5 g/dl (3.3-4.9); ALBUMIN/GLOBULIN RATIO 1.12; ALKALINE PHOSPHATASE 58 IU/L (42-121); ANION GAP 10 (5-13); ASPARTATE AMINO TRANSFERASE 28 IU/L (15-46); BILIRUBIN,INDIRECT 0.7 mg/dl (0-1.1); BILIRUBIN,TOTAL 0.7 mg/dl (0.2-1.3); BLOOD UREA NITROGEN 24 mg/dl (7-20); CARBON DIOXIDE 31 mmol/L (21-31); CHLORIDE 97 mmol/L (97-110); CREATININE 0.97 mg/dl (0.61-1.24); Estimated GFR > 60 mL/min (>60); GLUCOSE 105 mg/dl (70-220); SODIUM 138 mmol/L (135-144); TOTAL PROTEIN 6.6 g/dl (6.1-8.1)
[2018-08-02 06:21] LABS: TROPONIN-I 0.097 ng/ml (0.000-0.120)
[2018-08-02] MEDS: FUROSEMIDE 40 MG INJ IV ×2 (06:21→17:43)
[2018-08-02 06:30] LABS: MAGNESIUM 1.8 mg/dl (1.7-2.5)
[2018-08-02] MEDS: LOSARTAN 25 MG TAB PO (08:58)
[2018-08-02] MEDS: OSELTAMIVIR 75 MG CAP PO ×2 (09:06→21:12)
[2018-08-02] MEDS: FAMOTIDINE 20 MG TAB PO ×2 (09:06→21:14)
[2018-08-02] MEDS: THIAMINE 100 MG TAB PO (09:06)
[2018-08-02] MEDS: ASPIRIN (EC) 81 MG TAB PO (09:06)
[2018-08-02] MEDS: CEFTRIAXONE 2 GM/50 ML (PMX) 50 ML IVPB (11:09)
[2018-08-02] MEDS: AZITHROMYCIN 500MG/NS (PMX) 250 ML IVPB (11:55)
[2018-08-02] MEDS: HYDROCODONE/APAP (5/325) TAB PO (13:18)
[2018-08-02] MEDS: POTASSIUM CHLORIDE (SR) 20 MEQ TAB PO (21:13)
[2018-08-02] MEDS: MAGNESIUM SULFATE 2 GM/50 ML 50 ML IVPB (21:19)
[2018-08-02 22:44] LABS: AMPHETAMINE/METHAMPHETAMINE Negative (NEGATIVE); BARBITURATES Negative (NEGATIVE); BENZODIAZEPINES Negative (NEGATIVE); CANNABINOIDS Positive (NEGATIVE); COCAINE Negative (NEGATIVE); OPIATES Positive (NEGATIVE)
[2018-08-03] MEDS: LEVALBUTEROL (NEB) 0.63 MG/3 ML AMP HHN ×4 (02:14→19:04)
[2018-08-03 05:47] LABS: ADD MAN DIFF? NO
[2018-08-03 05:50] LABS: BASOPHILS % 0.8 % (0.0-2.0); EOSINOPHILS # 0.2 10^3/ul (0.0-0.5); EOSINOPHILS % 3.9 % (0.0-7.0); HEMATOCRIT 40.6 % (42.0-52.0); HEMOGLOBIN 12.7 g/dl (14.0-18.0); LYMPHOCYTES # 1.5 10^3/ul (0.8-2.9); LYMPHOCYTES % 39.7 % (15.0-51.0); MEAN CORPUSCULAR HEMOGLOBIN 27.4 pg (29.0-33.0); MEAN CORPUSCULAR HGB CONC 31.3 g/dl (32.0-37.0); MEAN CORPUSCULAR VOLUME 87.5 fl (82.0-101.0); MEAN PLATELET VOLUME 10.7 fl (7.4-10.4); MONOCYTE # 0.5 10^3/ul (0.3-0.9); MONOCYTES % 13.1 % (0.0-11.0); NEUTROPHIL # 1.6 10^3/ul (1.6-7.5); NEUTROPHILS % 42.2 % (39.0-77.0); PLATELET COUNT 198 10^3/UL (140-415); RED BLOOD COUNT 4.64 10^6/ul (4.70-6.10); RED CELL DISTRIBUTION WIDTH 15.7 % (11.5-14.5)
[2018-08-03 05:50] LABS: WHITE BLOOD COUNT 3.9 10^3/ul (4.8-10.8)
[2018-08-03] MEDS: FUROSEMIDE 40 MG INJ IV ×2 (06:31→17:06)
[2018-08-03 07:01] LABS: ANION GAP 9 (5-13); BLOOD UREA NITROGEN 29 mg/dl (7-20); CARBON DIOXIDE 33 mmol/L (21-31); CHLORIDE 99 mmol/L (97-110); CREATININE 1.08 mg/dl (0.61-1.24); Estimated GFR > 60 mL/min (>60); GLUCOSE 86 mg/dl (70-220); SODIUM 141 mmol/L (135-144)
[2018-08-03 07:08] LABS: PHOSPHORUS 5.6 mg/dl (2.5-4.9)
[2018-08-03 07:08] LABS: MAGNESIUM 2.4 mg/dl (1.7-2.5)
[2018-08-03] MEDS: LOSARTAN 25 MG TAB PO (09:00)
[2018-08-03] MEDS: THIAMINE 100 MG TAB PO (09:01)
[2018-08-03] MEDS: FAMOTIDINE 20 MG TAB PO ×2 (09:01→21:25)
[2018-08-03] MEDS: OSELTAMIVIR 75 MG CAP PO ×2 (09:01→21:25)
[2018-08-03] MEDS: ASPIRIN (EC) 81 MG TAB PO (09:01)
[2018-08-03] MEDS: CEFTRIAXONE 2 GM/50 ML (PMX) 50 ML IVPB (10:36)
[2018-08-03] MEDS: AZITHROMYCIN 500MG/NS (PMX) 250 ML IVPB (11:26)
[2018-08-03] MEDS: GUAIFENESIN/DM 5ML CUP PO (21:25)
[2018-08-04] MEDS: LEVALBUTEROL (NEB) 0.63 MG/3 ML AMP HHN ×3 (01:05→13:44)
[2018-08-04 05:28] LABS: ADD MAN DIFF? NO
[2018-08-04 05:40] LABS: WHITE BLOOD COUNT 3.7 10^3/ul (4.8-10.8)
[2018-08-04 05:40] LABS: BASOPHILS % 0.8 % (0.0-2.0); EOSINOPHILS # 0.2 10^3/ul (0.0-0.5); HEMATOCRIT 39.8 % (42.0-52.0); HEMOGLOBIN 12.2 g/dl (14.0-18.0); LYMPHOCYTES # 1.7 10^3/ul (0.8-2.9); MEAN CORPUSCULAR HEMOGLOBIN 26.6 pg (29.0-33.0); MEAN CORPUSCULAR HGB CONC 30.7 g/dl (32.0-37.0); MEAN CORPUSCULAR VOLUME 86.7 fl (82.0-101.0); MEAN PLATELET VOLUME 10.8 fl (7.4-10.4); MONOCYTE # 0.4 10^3/ul (0.3-0.9); MONOCYTES % 10.5 % (0.0-11.0); NEUTROPHIL # 1.4 10^3/ul (1.6-7.5); NEUTROPHILS % 38.4 % (39.0-77.0); PLATELET COUNT 197 10^3/UL (140-415); POSITIVE DIFF @See below; RED BLOOD COUNT 4.59 10^6/ul (4.70-6.10); RED CELL DISTRIBUTION WIDTH 15.7 % (11.5-14.5)
[2018-08-04 06:11] LABS: PHOSPHORUS 4.7 mg/dl (2.5-4.9)
[2018-08-04 06:11] LABS: ANION GAP 7 (5-13); BLOOD UREA NITROGEN 32 mg/dl (7-20); CALCIUM 8.8 mg/dl (8.4-10.2); CARBON DIOXIDE 35 mmol/L (21-31); CHLORIDE 99 mmol/L (97-110); CREATININE 1.11 mg/dl (0.61-1.24); Estimated GFR > 60 mL/min (>60); GLUCOSE 81 mg/dl (70-220); MAGNESIUM 2.2 mg/dl (1.7-2.5); POTASSIUM 3.6 mmol/L (3.5-5.1); SODIUM 141 mmol/L (135-144)
[2018-08-04] MEDS: ASPIRIN (EC) 81 MG TAB PO (08:38)
[2018-08-04] MEDS: FAMOTIDINE 20 MG TAB PO (08:38)
[2018-08-04] MEDS: LOSARTAN 25 MG TAB PO (08:38)
[2018-08-04] MEDS: THIAMINE 100 MG TAB PO (08:38)
[2018-08-04] MEDS: FUROSEMIDE 40 MG TAB PO (08:39)
[2018-08-04] MEDS: AZITHROMYCIN 250 MG TAB PO (10:10)
[2018-08-04] MEDS: AMOXICILLIN/CLAV 875 MG TAB PO (10:10)
[2018-08-06 13:20] LABS: PROCALCITONIN 0.26 ng/mL (<0.10)
== END 2018-08-04 15:25 | disposition home or self-care (01) | DRG 280 ==
LOC: E/R 12:28 → 6WM 15:20
DX: I11.0 Hypertensive heart disease with heart failure (principal); I21.A1 Myocardial infarction type 2; J18.0 Bronchopneumonia, unspecified organism; I50.23 Acute on chronic systolic (congestive) heart failure; I42.9 Cardiomyopathy, unspecified; F15.10 Other stimulant abuse, uncomplicated; G47.33 Obstructive sleep apnea (adult) (pediatric); E66.01 Morbid (severe) obesity due to excess calories; I44.0 Atrioventricular block, first degree; I45.4 Nonspecific intraventricular block; F17.200 Nicotine dependence, unspecified, uncomplicated; Z68.33 Body mass index [BMI] 33.0-33.9, adult; Z71.3 Dietary counseling and surveillance; Z98.84 Bariatric surgery status; Z90.49 Acquired absence of other specified parts of digestive tract; Z79.82 Long term (current) use of aspirin
CPT/HCPCS: 36415; 71045; 71250; 80048; 80053; 80307; 81001; 83036; 83605; 83735; 83880; 84100; 84145; 84443; 84484; 85025; 85610; 85651; 85730; 86140; 86635; 86703; 87040; 87086; 87400; 93005; 93306; 94640; 94664; 96374; 96375; 99285-25

== ENCOUNTER 2018-09-16 00:32 | Inpatient (IN) | payer MEDICAID, OTHER ==
[2018-09-16 01:52] LABS: ADD MAN DIFF? NO
[2018-09-16 01:53] LABS: BASOPHIL # 0.1 10^3/ul (0.0-0.1); BASOPHILS % 1.2 % (0.0-2.0); EOSINOPHILS # 0.1 10^3/ul (0.0-0.5); HEMATOCRIT 47.4 % (42.0-52.0); HEMOGLOBIN 14.9 g/dl (14.0-18.0); LYMPHOCYTES # 1.7 10^3/ul (0.8-2.9); LYMPHOCYTES % 29.6 % (15.0-51.0); MEAN CORPUSCULAR HGB CONC 31.4 g/dl (32.0-37.0); MEAN PLATELET VOLUME 9.8 fl (7.4-10.4); MONOCYTE # 0.5 10^3/ul (0.3-0.9); NEUTROPHIL # 3.5 10^3/ul (1.6-7.5); PLATELET COUNT 247 10^3/UL (140-415); RED BLOOD COUNT 5.51 10^6/ul (4.70-6.10); RED CELL DISTRIBUTION WIDTH 16.8 % (11.5-14.5)
[2018-09-16 01:53] LABS: WHITE BLOOD COUNT 5.8 10^3/ul (4.8-10.8)
[2018-09-16] MEDS: NITROGLYCERIN 2% 1 GM OINT PKT TD (01:56)
[2018-09-16] MEDS: FUROSEMIDE 20 MG INJ IV (01:56)
[2018-09-16 02:14] LABS: ANION GAP 11 (5-13); BLOOD UREA NITROGEN 38 mg/dl (7-20); CALCIUM 9.5 mg/dl (8.4-10.2); CARBON DIOXIDE 25 mmol/L (21-31); CHLORIDE 105 mmol/L (97-110); Estimated GFR 45 mL/min (>60); GLUCOSE 91 mg/dl (70-220); SODIUM 141 mmol/L (135-144)
[2018-09-16 02:25] LABS: B-TYPE NATRIURETIC PEPTIDE 10000 PG/ML (0-125)
[2018-09-16 02:28] LABS: TROPONIN-I 0.316 ng/ml (0.000-0.120)
[2018-09-16] MEDS: ASPIRIN 81 MG TAB PO ×2 (02:33→08:14)
[2018-09-16] MEDS ORDERED: ACETAMINOPHEN 325 MG TAB PO ×2 (03:00→03:30)
[2018-09-16] MEDS ORDERED: BISACODYL (EC) 5 MG TAB PO (03:30)
[2018-09-16] MEDS ORDERED: DOCUSATE SODIUM 100 MG CAP PO (03:30)
[2018-09-16] MEDS ORDERED: ONDANSETRON 4 MG TAB PO (03:30)
[2018-09-16] MEDS ORDERED: NACL 0.9% 3 ML SYG IV (03:30)
[2018-09-16] MEDS ORDERED: NITROGLYCERIN (SL) 0.4 MG TAB SL (03:30)
[2018-09-16 03:40] LABS: ETHANOL < 10.0 mg/dl (0-0)
[2018-09-16 06:30] LABS: CREATINE KINASE 216 IU/L (23-200)
[2018-09-16 06:36] LABS: CHOLESTEROL 57 mg/dl (100-200)
[2018-09-16 06:36] LABS: CHOL/HDL RATIO 2.7 RATIO; HDL CHOLESTEROL 21 mg/dl (28-63); LDL CHOLESTEROL,CALCULATED 23 mg/dl; TRIGLYCERIDES 66 mg/dl (0-149)
[2018-09-16 06:37] LABS: CK INDEX 1.9
[2018-09-16 06:46] LABS: CK-MB 4.11 ng/ml (0.0-2.4); TROPONIN-I 0.297 ng/ml (0.000-0.120)
[2018-09-16 07:46] LABS: HEMOGLOBIN A1C 5.9 % (0-5.9)
[2018-09-16] MEDS: FUROSEMIDE 40 MG INJ IV ×2 (08:14→17:49)
[2018-09-16] MEDS: ONDANSETRON 4 MG INJ IV (10:00)
[2018-09-16] MEDS: morphine 2 MG INJ IV ×2 (10:01→18:29)
[2018-09-16 12:05] LABS: CREATINE KINASE 178 IU/L (23-200)
[2018-09-16 12:13] LABS: CK INDEX 1.9
[2018-09-16 12:14] LABS: CK-MB 3.31 ng/ml (0.0-2.4); TROPONIN-I 0.192 ng/ml (0.000-0.120)
[2018-09-16 12:57] LABS: AMPHETAMINE/METHAMPHETAMINE Positive (NEGATIVE); BARBITURATES Negative (NEGATIVE); BENZODIAZEPINES Negative (NEGATIVE); CANNABINOIDS Negative (NEGATIVE); COCAINE Negative (NEGATIVE); OPIATES Positive (NEGATIVE)
[2018-09-16 21:08] LABS: ADD UMIC YES; UR ASCORBIC ACID NEGATIVE (NEGATIVE); UR BILIRUBIN (Dip) NEGATIVE (NEGATIVE); UR BLOOD (Dip) 1+ mg/dL (NEGATIVE); UR CLARITY CLEAR (CLEAR); UR COLOR YELLOW (YELLOW); UR GLUCOSE (Dip) NEGATIVE (NEGATIVE); UR KETONES (Dip) NEGATIVE (NEGATIVE); UR LEUKOCYTE ESTERASE (Dip) NEGATIVE Leu/ul (NEGATIVE); UR NITRITE (Dip) NEGATIVE (NEGATIVE); UR RBC 1 /HPF (0-5); UR SPECIFIC GRAVITY (Dip) 1.011 (1.003-1.030); UR TOTAL PROTEIN (Dip) 1+ mg/dl (NEGATIVE); UR UROBILINOGEN (Dip) 1+ mg/dL (NEGATIVE); UR WBC 1 /HPF (0-5)
[2018-09-17] MEDS: morphine 2 MG INJ IV ×3 (02:48→17:01)
[2018-09-17 05:55] LABS: ADD MAN DIFF? NO
[2018-09-17 05:58] LABS: WHITE BLOOD COUNT 5.4 10^3/ul (4.8-10.8)
[2018-09-17 05:58] LABS: BASOPHIL # 0.1 10^3/ul (0.0-0.1); BASOPHILS % 1.1 % (0.0-2.0); EOSINOPHILS % 0.7 % (0.0-7.0); HEMATOCRIT 45.1 % (42.0-52.0); LYMPHOCYTES # 1.1 10^3/ul (0.8-2.9); LYMPHOCYTES % 20.6 % (15.0-51.0); MEAN CORPUSCULAR VOLUME 86.9 fl (82.0-101.0); MEAN PLATELET VOLUME 10.2 fl (7.4-10.4); MONOCYTE # 0.4 10^3/ul (0.3-0.9); NEUTROPHIL # 3.8 10^3/ul (1.6-7.5); NEUTROPHILS % 70.4 % (39.0-77.0); PLATELET COUNT 237 10^3/UL (140-415); RED BLOOD COUNT 5.19 10^6/ul (4.70-6.10); RED CELL DISTRIBUTION WIDTH 16.9 % (11.5-14.5)
[2018-09-17] MEDS: FUROSEMIDE 40 MG INJ IV ×2 (06:18→17:01)
[2018-09-17 06:38] LABS: ALANINE AMINOTRANSFERASE 62 IU/L (13-69); ALBUMIN 3.5 g/dl (3.3-4.9); ALBUMIN/GLOBULIN RATIO 1.12; ALKALINE PHOSPHATASE 78 IU/L (42-121); ANION GAP 11 (5-13); ASPARTATE AMINO TRANSFERASE 68 IU/L (15-46); BILIRUBIN,INDIRECT 1.5 mg/dl (0-1.1); BILIRUBIN,TOTAL 1.5 mg/dl (0.2-1.3); BLOOD UREA NITROGEN 41 mg/dl (7-20); CALCIUM 8.9 mg/dl (8.4-10.2); CARBON DIOXIDE 25 mmol/L (21-31); CHLORIDE 103 mmol/L (97-110); CREATININE 1.46 mg/dl (0.61-1.24); Estimated GFR 54 mL/min (>60); GLUCOSE 125 mg/dl (70-220); POTASSIUM 3.9 mmol/L (3.5-5.1); SODIUM 139 mmol/L (135-144); TOTAL PROTEIN 6.6 g/dl (6.1-8.1)
[2018-09-17] MEDS: ASPIRIN 81 MG TAB PO (07:59)
[2018-09-17] MEDS: METOPROLOL (XL) 50 MG TAB PO (17:01)
[2018-09-18] MEDS: morphine 2 MG INJ IV ×3 (01:27→18:04)
[2018-09-18 05:25] LABS: ADD MAN DIFF? NO
[2018-09-18 05:34] LABS: BASOPHIL # 0.1 10^3/ul (0.0-0.1); BASOPHILS % 0.7 % (0.0-2.0); EOSINOPHILS % 0.3 % (0.0-7.0); HEMATOCRIT 42.7 % (42.0-52.0); HEMOGLOBIN 13.7 g/dl (14.0-18.0); LYMPHOCYTES # 1.3 10^3/ul (0.8-2.9); MEAN CORPUSCULAR HGB CONC 32.1 g/dl (32.0-37.0); MEAN CORPUSCULAR VOLUME 84.1 fl (82.0-101.0); MEAN PLATELET VOLUME 10.3 fl (7.4-10.4); MONOCYTE # 0.7 10^3/ul (0.3-0.9); MONOCYTES % 10.3 % (0.0-11.0); NEUTROPHIL # 4.6 10^3/ul (1.6-7.5); NEUTROPHILS % 69.4 % (39.0-77.0); PLATELET COUNT 239 10^3/UL (140-415); RED BLOOD COUNT 5.08 10^6/ul (4.70-6.10); RED CELL DISTRIBUTION WIDTH 16.9 % (11.5-14.5)
[2018-09-18 05:34] LABS: WHITE BLOOD COUNT 6.7 10^3/ul (4.8-10.8)
[2018-09-18] MEDS: FUROSEMIDE 40 MG INJ IV ×2 (05:55→18:04)
[2018-09-18 05:58] LABS: ALANINE AMINOTRANSFERASE 71 IU/L (13-69); ALBUMIN/GLOBULIN RATIO 1.03; ALKALINE PHOSPHATASE 65 IU/L (42-121); ANION GAP 10 (5-13); ASPARTATE AMINO TRANSFERASE 80 IU/L (15-46); BILIRUBIN,INDIRECT 1.6 mg/dl (0-1.1); BILIRUBIN,TOTAL 1.6 mg/dl (0.2-1.3); BLOOD UREA NITROGEN 39 mg/dl (7-20); CALCIUM 8.5 mg/dl (8.4-10.2); CARBON DIOXIDE 27 mmol/L (21-31); CHLORIDE 100 mmol/L (97-110); CREATININE 1.25 mg/dl (0.61-1.24); Estimated GFR > 60 mL/min (>60); GLUCOSE 96 mg/dl (70-220); POTASSIUM 4.2 mmol/L (3.5-5.1); SODIUM 137 mmol/L (135-144); TOTAL PROTEIN 5.9 g/dl (6.1-8.1)
[2018-09-18 06:03] LABS: MAGNESIUM 1.5 mg/dl (1.7-2.5)
[2018-09-18] MEDS: ASPIRIN 81 MG TAB PO (08:35)
[2018-09-18] MEDS: METOPROLOL (XL) 50 MG TAB PO (08:38)
[2018-09-18] MEDS: MAGNESIUM SULFATE 2 GM/50 ML 50 ML IVPB (14:18)
[2018-09-19] MEDS: morphine 2 MG INJ IV ×2 (02:56→14:04)
[2018-09-19 05:27] LABS: ADD MAN DIFF? NO; HAAIG REFLEX REFLEX FILED
[2018-09-19 05:34] LABS: WHITE BLOOD COUNT 7.2 10^3/ul (4.8-10.8)
[2018-09-19 05:34] LABS: BASOPHILS % 0.6 % (0.0-2.0); HEMATOCRIT 45.1 % (42.0-52.0); HEMOGLOBIN 14.2 g/dl (14.0-18.0); LYMPHOCYTES # 1.3 10^3/ul (0.8-2.9); LYMPHOCYTES % 18.1 % (15.0-51.0); MEAN CORPUSCULAR HEMOGLOBIN 26.5 pg (29.0-33.0); MEAN CORPUSCULAR HGB CONC 31.5 g/dl (32.0-37.0); MEAN CORPUSCULAR VOLUME 84.3 fl (82.0-101.0); MEAN PLATELET VOLUME 10.1 fl (7.4-10.4); MONOCYTE # 0.7 10^3/ul (0.3-0.9); MONOCYTES % 9.1 % (0.0-11.0); NEUTROPHIL # 5.2 10^3/ul (1.6-7.5); NEUTROPHILS % 71.8 % (39.0-77.0); PLATELET COUNT 243 10^3/UL (140-415); RED BLOOD COUNT 5.35 10^6/ul (4.70-6.10)
[2018-09-19] MEDS: FUROSEMIDE 40 MG INJ IV ×2 (05:39→18:30)
[2018-09-19 05:56] LABS: ALANINE AMINOTRANSFERASE 258 IU/L (13-69); ALBUMIN 3.1 g/dl (3.3-4.9); ALBUMIN/GLOBULIN RATIO 0.96; ALKALINE PHOSPHATASE 84 IU/L (42-121); ANION GAP 11 (5-13); ASPARTATE AMINO TRANSFERASE 318 IU/L (15-46); BILIRUBIN,INDIRECT 1.5 mg/dl (0-1.1); BILIRUBIN,TOTAL 1.5 mg/dl (0.2-1.3); BLOOD UREA NITROGEN 46 mg/dl (7-20); CALCIUM 8.6 mg/dl (8.4-10.2); CARBON DIOXIDE 26 mmol/L (21-31); CHLORIDE 97 mmol/L (97-110); Estimated GFR 52 mL/min (>60); GLUCOSE 102 mg/dl (70-220); POTASSIUM 5.1 mmol/L (3.5-5.1); SODIUM 134 mmol/L (135-144); TOTAL PROTEIN 6.3 g/dl (6.1-8.1)
[2018-09-19 06:23] LABS: HEPATITIS B SURFACE ANTIGEN NEGATIVE (NEGATIVE)
[2018-09-19 06:41] LABS: HEPATITIS B CORE ANTIBODY NEGATIVE (NEGATIVE); HEPATITIS C VIRAL ANTIBODY NEGATIVE (NEGATIVE)
[2018-09-19] MEDS: METOPROLOL (XL) 50 MG TAB PO (09:15)
[2018-09-19] MEDS: ASPIRIN 81 MG TAB PO (09:16)
[2018-09-20] MEDS: morphine 2 MG INJ IV (00:58)
[2018-09-20 05:45] LABS: ADD MAN DIFF? NO
[2018-09-20 05:54] LABS: WHITE BLOOD COUNT 6.8 10^3/ul (4.8-10.8)
[2018-09-20 05:54] LABS: BASOPHIL # 0.1 10^3/ul (0.0-0.1); BASOPHILS % 0.9 % (0.0-2.0); EOSINOPHILS % 0.3 % (0.0-7.0); HEMATOCRIT 43.9 % (42.0-52.0); HEMOGLOBIN 13.8 g/dl (14.0-18.0); LYMPHOCYTES # 1.5 10^3/ul (0.8-2.9); LYMPHOCYTES % 21.5 % (15.0-51.0); MEAN CORPUSCULAR HEMOGLOBIN 26.7 pg (29.0-33.0); MEAN CORPUSCULAR HGB CONC 31.4 g/dl (32.0-37.0); MEAN CORPUSCULAR VOLUME 85.1 fl (82.0-101.0); MEAN PLATELET VOLUME 10.4 fl (7.4-10.4); MONOCYTE # 0.8 10^3/ul (0.3-0.9); MONOCYTES % 11.3 % (0.0-11.0); NEUTROPHIL # 4.4 10^3/ul (1.6-7.5); NEUTROPHILS % 65.7 % (39.0-77.0); PLATELET COUNT 249 10^3/UL (140-415); RED BLOOD COUNT 5.16 10^6/ul (4.70-6.10); RED CELL DISTRIBUTION WIDTH 17.1 % (11.5-14.5)
[2018-09-20] MEDS: FUROSEMIDE 40 MG INJ IV (06:00)
[2018-09-20 06:54] LABS: ALANINE AMINOTRANSFERASE 407 IU/L (13-69); ALBUMIN/GLOBULIN RATIO 0.93; ALKALINE PHOSPHATASE 80 IU/L (42-121); ANION GAP 9 (5-13); ASPARTATE AMINO TRANSFERASE 516 IU/L (15-46); BLOOD UREA NITROGEN 47 mg/dl (7-20); CALCIUM 8.4 mg/dl (8.4-10.2); CARBON DIOXIDE 28 mmol/L (21-31); CHLORIDE 97 mmol/L (97-110); CREATININE 1.41 mg/dl (0.61-1.24); Estimated GFR 56 mL/min (>60); GLUCOSE 111 mg/dl (70-220); POTASSIUM 4.5 mmol/L (3.5-5.1); SODIUM 134 mmol/L (135-144); TOTAL PROTEIN 6.2 g/dl (6.1-8.1)
[2018-09-20] MEDS: METOPROLOL (XL) 50 MG TAB PO (08:22)
[2018-09-20] MEDS: ASPIRIN 81 MG TAB PO (08:22)
== END 2018-09-20 16:35 | disposition home or self-care (01) | DRG 280 ==
LOC: 2NE 09-17 18:25 → E/R 00:32 → 6WM 02:46
DX: I21.A1 Myocardial infarction type 2 (principal); I50.23 Acute on chronic systolic (congestive) heart failure; I42.8 Other cardiomyopathies; N17.9 Acute kidney failure, unspecified; I11.0 Hypertensive heart disease with heart failure; E66.01 Morbid (severe) obesity due to excess calories; F15.90 Other stimulant use, unspecified, uncomplicated; Z68.33 Body mass index [BMI] 33.0-33.9, adult; Z98.84 Bariatric surgery status; Z72.0 Tobacco use
CPT/HCPCS: 36415; 71045; 76705; 80048; 80053; 80061; 80307; 81001; 82550; 82553; 83036; 83735; 83880; 84443; 84484; 85025; 86704; 86709; 86803; 87340; 93005; 96374; 99285-25

== ENCOUNTER 2018-10-16 20:51 | Inpatient (IN) | payer MEDICAID ==
[2018-10-16 21:56] LABS: MODE NASAL CANNULA; MetHgb Venous 0.2 %; Sample Type Blood venous; Site VENOUS LINE; Venous COHb 1.2 %; Venous Fraction OxyHgb 78.1 %; Venous Oxygen Sat 79.2 mmHG (55.0-75.0); Venous Total Hemglobin 13.7 g/dl
[2018-10-16 22:07] LABS: ADD MAN DIFF? NO
[2018-10-16] MEDS: FUROSEMIDE 40 MG INJ IV (22:07)
[2018-10-16 22:09] LABS: BASOPHIL # 0.1 10^3/ul (0.0-0.1); EOSINOPHILS # 0.1 10^3/ul (0.0-0.5); EOSINOPHILS % 2.1 % (0.0-7.0); HEMATOCRIT 41.1 % (42.0-52.0); HEMOGLOBIN 12.7 g/dl (14.0-18.0); LYMPHOCYTES # 1.1 10^3/ul (0.8-2.9); LYMPHOCYTES % 21.6 % (15.0-51.0); MEAN CORPUSCULAR HEMOGLOBIN 26.6 pg (29.0-33.0); MEAN CORPUSCULAR HGB CONC 30.9 g/dl (32.0-37.0); MEAN CORPUSCULAR VOLUME 86.2 fl (82.0-101.0); MEAN PLATELET VOLUME 9.4 fl (7.4-10.4); MONOCYTE # 0.4 10^3/ul (0.3-0.9); NEUTROPHIL # 3.5 10^3/ul (1.6-7.5); NEUTROPHILS % 67.1 % (39.0-77.0); PLATELET COUNT 225 10^3/UL (140-415); RED BLOOD COUNT 4.77 10^6/ul (4.70-6.10); RED CELL DISTRIBUTION WIDTH 16.8 % (11.5-14.5)
[2018-10-16 22:09] LABS: WHITE BLOOD COUNT 5.2 10^3/ul (4.8-10.8)
[2018-10-16 22:26] LABS: ALANINE AMINOTRANSFERASE 23 IU/L (13-69); ALBUMIN 3.6 g/dl (3.3-4.9); ALBUMIN/GLOBULIN RATIO 1.02; ALKALINE PHOSPHATASE 71 IU/L (42-121); ANION GAP 6 (5-13); ASPARTATE AMINO TRANSFERASE 30 IU/L (15-46); BILIRUBIN,INDIRECT 0.6 mg/dl (0-1.1); BILIRUBIN,TOTAL 0.6 mg/dl (0.2-1.3); BLOOD UREA NITROGEN 25 mg/dl (7-20); CALCIUM 8.8 mg/dl (8.4-10.2); CARBON DIOXIDE 27 mmol/L (21-31); CHLORIDE 108 mmol/L (97-110); CREATININE 0.84 mg/dl (0.61-1.24); Estimated GFR > 60 mL/min (>60); GLUCOSE 102 mg/dl (70-220); POTASSIUM 3.6 mmol/L (3.5-5.1); SODIUM 141 mmol/L (135-144); TOTAL PROTEIN 7.1 g/dl (6.1-8.1)
[2018-10-16 22:29] LABS: INR 1.23; PROTIME 15.6 Sec (11.9-14.9); PT RATIO 1.2
[2018-10-16 22:30] LABS: PARTIAL THROMBOPLASTIN TIME 38.1 Sec (23.0-35.0)
[2018-10-16 22:40] LABS: TROPONIN-I 0.442 ng/ml (0.000-0.120)
[2018-10-16] MEDS ORDERED: ONDANSETRON 4 MG INJ IV (23:30)
[2018-10-16] MEDS ORDERED: NACL 0.9% 3 ML SYG IV (23:30)
[2018-10-17 00:25] LABS: LACTIC ACID 1.5 mmol/L (0.5-2.0)
[2018-10-17] MEDS: ACETAMINOPHEN 325 MG TAB PO ×2 (03:01→08:28)
[2018-10-17 03:10] LABS: ADD MAN DIFF? NO
[2018-10-17 03:13] LABS: BASOPHIL # 0.1 10^3/ul (0.0-0.1); EOSINOPHILS # 0.1 10^3/ul (0.0-0.5); HEMATOCRIT 41.1 % (42.0-52.0); HEMOGLOBIN 12.6 g/dl (14.0-18.0); LYMPHOCYTES # 1.1 10^3/ul (0.8-2.9); LYMPHOCYTES % 22.6 % (15.0-51.0); MEAN CORPUSCULAR HEMOGLOBIN 26.6 pg (29.0-33.0); MEAN CORPUSCULAR HGB CONC 30.7 g/dl (32.0-37.0); MEAN CORPUSCULAR VOLUME 86.7 fl (82.0-101.0); MEAN PLATELET VOLUME 10.1 fl (7.4-10.4); MONOCYTE # 0.4 10^3/ul (0.3-0.9); MONOCYTES % 6.9 % (0.0-11.0); NEUTROPHIL # 3.4 10^3/ul (1.6-7.5); NEUTROPHILS % 67.3 % (39.0-77.0); PLATELET COUNT 235 10^3/UL (140-415); RED BLOOD COUNT 4.74 10^6/ul (4.70-6.10); RED CELL DISTRIBUTION WIDTH 16.7 % (11.5-14.5)
[2018-10-17 03:33] LABS: ALANINE AMINOTRANSFERASE 21 IU/L (13-69); ALBUMIN 3.6 g/dl (3.3-4.9); ALBUMIN/GLOBULIN RATIO 0.94; ALKALINE PHOSPHATASE 77 IU/L (42-121); ANION GAP 7 (5-13); ASPARTATE AMINO TRANSFERASE 29 IU/L (15-46); BILIRUBIN,INDIRECT 0.8 mg/dl (0-1.1); BILIRUBIN,TOTAL 0.8 mg/dl (0.2-1.3); BLOOD UREA NITROGEN 24 mg/dl (7-20); CALCIUM 8.9 mg/dl (8.4-10.2); CARBON DIOXIDE 30 mmol/L (21-31); CHLORIDE 106 mmol/L (97-110); Estimated GFR > 60 mL/min (>60); GLUCOSE 154 mg/dl (70-220); MAGNESIUM 2.1 mg/dl (1.7-2.5); PHOSPHORUS 4.1 mg/dl (2.5-4.9); POTASSIUM 4.4 mmol/L (3.5-5.1); SODIUM 143 mmol/L (135-144); TOTAL PROTEIN 7.4 g/dl (6.1-8.1)
[2018-10-17 03:52] LABS: TROPONIN-I 0.454 ng/ml (0.000-0.120)
[2018-10-17] MEDS: FUROSEMIDE 40 MG INJ IV ×2 (05:29→17:23)
[2018-10-17] MEDS: ASPIRIN 81 MG TAB PO (08:20)
[2018-10-17] MEDS: LOSARTAN 25 MG TAB PO (08:21)
[2018-10-17] MEDS: ENOXAPARIN 40 MG/0.4 ML SYG SC (08:25)
[2018-10-17 08:44] LABS: TROPONIN-I 0.345 ng/ml (0.000-0.120)
[2018-10-17 12:42] LABS: CREATINE KINASE 109 IU/L (23-200)
[2018-10-17 12:53] LABS: CK INDEX 1.4; CK-MB 1.51 ng/ml (0.0-2.4); TROPONIN-I 0.321 ng/ml (0.000-0.120)
[2018-10-17 18:02] LABS: AMPHETAMINE/METHAMPHETAMINE Negative (NEGATIVE); BARBITURATES Negative (NEGATIVE); BENZODIAZEPINES Negative (NEGATIVE); CANNABINOIDS Negative (NEGATIVE); COCAINE Negative (NEGATIVE); OPIATES Negative (NEGATIVE)
[2018-10-17 18:34] LABS: CREATINE KINASE 99 IU/L (23-200)
[2018-10-17 18:46] LABS: CK INDEX 1.6; CK-MB 1.57 ng/ml (0.0-2.4); TROPONIN-I 0.274 ng/ml (0.000-0.120)
[2018-10-18] MEDS: IBUPROFEN 600 MG TAB PO ×2 (01:21→19:50)
[2018-10-18] MEDS: FUROSEMIDE 40 MG INJ IV ×2 (05:38→21:34)
[2018-10-18 06:49] LABS: WHITE BLOOD COUNT 4.3 10^3/ul (4.8-10.8)
[2018-10-18 06:49] LABS: HEMATOCRIT 40.8 % (42.0-52.0); HEMOGLOBIN 12.6 g/dl (14.0-18.0); MEAN CORPUSCULAR HEMOGLOBIN 26.4 pg (29.0-33.0); MEAN CORPUSCULAR HGB CONC 30.9 g/dl (32.0-37.0); MEAN CORPUSCULAR VOLUME 85.4 fl (82.0-101.0); PLATELET COUNT 226 10^3/UL (140-415); POSITIVE DIFF @See below; RED BLOOD COUNT 4.78 10^6/ul (4.70-6.10); RED CELL DISTRIBUTION WIDTH 16.8 % (11.5-14.5)
[2018-10-18 06:54] LABS: ADD MAN DIFF? YES
[2018-10-18 07:17] LABS: MAGNESIUM 2.1 mg/dl (1.7-2.5)
[2018-10-18 07:17] LABS: PHOSPHORUS 5.7 mg/dl (2.5-4.9)
[2018-10-18 07:22] LABS: ALANINE AMINOTRANSFERASE 20 IU/L (13-69); ALBUMIN 3.4 g/dl (3.3-4.9); ALBUMIN/GLOBULIN RATIO 0.97; ALKALINE PHOSPHATASE 76 IU/L (42-121); ANION GAP 8 (5-13); ASPARTATE AMINO TRANSFERASE 29 IU/L (15-46); BILIRUBIN,INDIRECT 0.8 mg/dl (0-1.1); BILIRUBIN,TOTAL 0.8 mg/dl (0.2-1.3); BLOOD UREA NITROGEN 30 mg/dl (7-20); CALCIUM 9.1 mg/dl (8.4-10.2); CARBON DIOXIDE 28 mmol/L (21-31); CHLORIDE 104 mmol/L (97-110); CREATININE 1.11 mg/dl (0.61-1.24); Estimated GFR > 60 mL/min (>60); GLUCOSE 96 mg/dl (70-220); POTASSIUM 4.1 mmol/L (3.5-5.1); SODIUM 140 mmol/L (135-144); TOTAL PROTEIN 6.9 g/dl (6.1-8.1)
[2018-10-18 07:25] LABS: CHOL/HDL RATIO 3.1 RATIO; HDL CHOLESTEROL 26 mg/dl (28-63); LDL CHOLESTEROL,CALCULATED 45 mg/dl; TRIGLYCERIDES 62 mg/dl (0-149)
[2018-10-18 07:25] LABS: CHOLESTEROL 83 mg/dl (100-200)
[2018-10-18 07:26] LABS: TROPONIN-I 0.246 ng/ml (0.000-0.120)
[2018-10-18 07:59] LABS: ANISOCYTOSIS 1+ (0-0); BAND NEUTROPHILS % (M) 2 % (0-4); BASOPHILS % (M) 2 % (0-2); BURR CELLS 1+ (0-0); EOSINOPHILS % (M) 4 % (0-7); GIANT THROMBO% (M) 4 % (0-0); LYMPHOCYTES #M 0.9 10^3/ul (0.8-2.9); LYMPHOCYTES % (M) 23 % (15-51); MONOCYTE #M 0.2 10^3/ul (0.3-0.9); MONOCYTES % (M) 6 % (0-11); MYELOCYTES % (M) 1 % (0-0); PLATELET ESTIMATE NORMAL; POIKILOCYTOSIS 1+ (0-0); POLYCHROMASIA 1+ (0-0); SEG NEUT #M 2.7 10^3/ul (1.6-7.5); SEGMENTED NEUTROPHILS (M) % 62 % (39-77); SMUDGE%M 4 % (0-0)
[2018-10-18] MEDS: ASPIRIN 81 MG TAB PO (08:06)
[2018-10-18] MEDS: LOSARTAN 25 MG TAB PO (08:06)
[2018-10-18] MEDS: ENOXAPARIN 40 MG/0.4 ML SYG SC (08:07)
[2018-10-19] MEDS: FUROSEMIDE 40 MG INJ IV ×3 (05:27→22:03)
[2018-10-19 08:15] LABS: ANION GAP 9 (5-13); BLOOD UREA NITROGEN 34 mg/dl (7-20); CALCIUM 8.7 mg/dl (8.4-10.2); CARBON DIOXIDE 27 mmol/L (21-31); CHLORIDE 105 mmol/L (97-110); CREATININE 1.14 mg/dl (0.61-1.24); Estimated GFR > 60 mL/min (>60); GLUCOSE 92 mg/dl (70-220); MAGNESIUM 1.9 mg/dl (1.7-2.5); PHOSPHORUS 5.5 mg/dl (2.5-4.9); POTASSIUM 4.1 mmol/L (3.5-5.1); SODIUM 141 mmol/L (135-144)
[2018-10-19] MEDS: SPIRONOLACTONE 25 MG TAB PO (08:46)
[2018-10-19] MEDS: ASPIRIN 81 MG TAB PO (08:47)
[2018-10-19] MEDS: LOSARTAN 25 MG TAB PO (08:47)
[2018-10-19] MEDS: ENOXAPARIN 40 MG/0.4 ML SYG SC (08:51)
[2018-10-20] MEDS: FUROSEMIDE 40 MG INJ IV ×4 (05:43→20:49)
[2018-10-20 07:06] LABS: ANION GAP 9 (5-13); BLOOD UREA NITROGEN 34 mg/dl (7-20); CALCIUM 8.5 mg/dl (8.4-10.2); CARBON DIOXIDE 29 mmol/L (21-31); CHLORIDE 103 mmol/L (97-110); CREATININE 1.13 mg/dl (0.61-1.24); Estimated GFR > 60 mL/min (>60); GLUCOSE 92 mg/dl (70-220); MAGNESIUM 1.9 mg/dl (1.7-2.5); PHOSPHORUS 4.7 mg/dl (2.5-4.9); POTASSIUM 3.9 mmol/L (3.5-5.1); SODIUM 141 mmol/L (135-144)
[2018-10-20] MEDS: ASPIRIN 81 MG TAB PO (09:12)
[2018-10-20] MEDS: SPIRONOLACTONE 25 MG TAB PO (09:12)
[2018-10-20] MEDS: LOSARTAN 25 MG TAB PO (09:12)
[2018-10-20] MEDS: ENOXAPARIN 40 MG/0.4 ML SYG SC (09:15)
[2018-10-20] MEDS: MAGNESIUM SULFATE 2 GM/50 ML 50 ML IVPB (13:55)
[2018-10-20] MEDS: POTASSIUM CHLORIDE 20 MEQ POWDER FOR ORAL SOLN PO (13:55)
[2018-10-20] MEDS: METOLAZONE 5 MG TAB PO (15:18)
[2018-10-21] MEDS: FUROSEMIDE 40 MG INJ IV ×2 (06:11→15:23)
[2018-10-21] MEDS: ASPIRIN 81 MG TAB PO (08:21)
[2018-10-21] MEDS: SPIRONOLACTONE 25 MG TAB PO (08:21)
[2018-10-21] MEDS: LOSARTAN 25 MG TAB PO (08:21)
[2018-10-21] MEDS: ENOXAPARIN 40 MG/0.4 ML SYG SC (08:26)
[2018-10-21 08:41] LABS: ANION GAP 8 (5-13); BLOOD UREA NITROGEN 32 mg/dl (7-20); CARBON DIOXIDE 33 mmol/L (21-31); CHLORIDE 99 mmol/L (97-110); CREATININE 1.06 mg/dl (0.61-1.24); Estimated GFR > 60 mL/min (>60); GLUCOSE 94 mg/dl (70-220); PHOSPHORUS 4.9 mg/dl (2.5-4.9); SODIUM 140 mmol/L (135-144)
== END 2018-10-21 19:30 | disposition home or self-care (01) | DRG 281 ==
LOC: TEL 22:52 → MS1 10-18 13:18 → E/R 20:51 → TEL 10-18 18:07
DX: I50.23 Acute on chronic systolic (congestive) heart failure (principal); I21.A1 Myocardial infarction type 2; I42.7 Cardiomyopathy due to drug and external agent; F19.10 Other psychoactive substance abuse, uncomplicated; E66.9 Obesity, unspecified; Z68.34 Body mass index [BMI] 34.0-34.9, adult; T43.625A Adverse effect of amphetamines, initial encounter; F15.10 Other stimulant abuse, uncomplicated; Z98.84 Bariatric surgery status; F17.210 Nicotine dependence, cigarettes, uncomplicated; R73.03 Prediabetes
CPT/HCPCS: 36415; 71045; 80048; 80053; 80061; 80307; 82550; 82553; 82803; 83036; 83605; 83735; 84100; 84443; 84484; 85025; 85610; 85730; 87081; 93005; 96374; 99285-25

== ENCOUNTER 2018-12-19 11:04 | Inpatient (IN) | payer MEDICAID ==
[2018-12-19] MEDS: ENALAPRILAT 1.25 MG INJ IV (11:29)
[2018-12-19] MEDS: ASPIRIN 81 MG TAB PO (11:29)
[2018-12-19] MEDS: NITROGLYCERIN (SL) 0.4 MG TAB SL (11:30)
[2018-12-19] MEDS: FUROSEMIDE 40 MG INJ IV ×2 (11:30→18:04)
[2018-12-19 11:38] LABS: ADD MAN DIFF? NO
[2018-12-19 11:40] LABS: BASOPHIL # 0.1 10^3/ul (0.0-0.1); EOSINOPHILS # 0.1 10^3/ul (0.0-0.5); EOSINOPHILS % 2.2 % (0.0-7.0); HEMATOCRIT 45.9 % (42.0-52.0); LYMPHOCYTES # 1.3 10^3/ul (0.8-2.9); LYMPHOCYTES % 22.2 % (15.0-51.0); MEAN CORPUSCULAR HGB CONC 30.5 g/dl (32.0-37.0); MEAN CORPUSCULAR VOLUME 85.2 fl (82.0-101.0); MEAN PLATELET VOLUME 10.2 fl (7.4-10.4); MONOCYTE # 0.5 10^3/ul (0.3-0.9); MONOCYTES % 8.2 % (0.0-11.0); NEUTROPHILS % 66.1 % (39.0-77.0); PLATELET COUNT 216 10^3/UL (140-415); RED BLOOD COUNT 5.39 10^6/ul (4.70-6.10); RED CELL DISTRIBUTION WIDTH 18.3 % (11.5-14.5)
[2018-12-19 12:08] LABS: ALANINE AMINOTRANSFERASE 22 IU/L (13-69); ALBUMIN 3.9 g/dl (3.3-4.9); ALBUMIN/GLOBULIN RATIO 1.02; ALKALINE PHOSPHATASE 82 IU/L (42-121); ANION GAP 9 (5-13); ASPARTATE AMINO TRANSFERASE 30 IU/L (15-46); BILIRUBIN,INDIRECT 1.3 mg/dl (0-1.1); BILIRUBIN,TOTAL 1.3 mg/dl (0.2-1.3); BLOOD UREA NITROGEN 25 mg/dl (7-20); CALCIUM 9.1 mg/dl (8.4-10.2); CARBON DIOXIDE 31 mmol/L (21-31); CHLORIDE 100 mmol/L (97-110); CREATININE 1.36 mg/dl (0.61-1.24); Estimated GFR 59 mL/min (>60); GLUCOSE 96 mg/dl (70-220); LIPASE 137 U/L (23-300); POTASSIUM 4.2 mmol/L (3.5-5.1); SODIUM 140 mmol/L (135-144); TOTAL PROTEIN 7.7 g/dl (6.1-8.1)
[2018-12-19 12:19] LABS: B-TYPE NATRIURETIC PEPTIDE 8510 PG/ML (0-125); TROPONIN-I 0.056 ng/ml (0.000-0.120)
[2018-12-19] MEDS ORDERED: NACL 0.9% 3 ML SYG IV (15:30)
[2018-12-20 05:50] LABS: ADD MAN DIFF? NO
[2018-12-20 05:53] LABS: WHITE BLOOD COUNT 5.2 10^3/ul (4.8-10.8)
[2018-12-20 05:53] LABS: BASOPHIL # 0.1 10^3/ul (0.0-0.1); BASOPHILS % 1.2 % (0.0-2.0); EOSINOPHILS # 0.1 10^3/ul (0.0-0.5); EOSINOPHILS % 1.4 % (0.0-7.0); HEMATOCRIT 44.9 % (42.0-52.0); HEMOGLOBIN 13.4 g/dl (14.0-18.0); LYMPHOCYTES # 0.9 10^3/ul (0.8-2.9); LYMPHOCYTES % 17.8 % (15.0-51.0); MEAN CORPUSCULAR HEMOGLOBIN 25.5 pg (29.0-33.0); MEAN CORPUSCULAR HGB CONC 29.8 g/dl (32.0-37.0); MEAN CORPUSCULAR VOLUME 85.4 fl (82.0-101.0); MEAN PLATELET VOLUME 10.3 fl (7.4-10.4); MONOCYTE # 0.3 10^3/ul (0.3-0.9); MONOCYTES % 6.4 % (0.0-11.0); NEUTROPHIL # 3.8 10^3/ul (1.6-7.5); PLATELET COUNT 204 10^3/UL (140-415); RED BLOOD COUNT 5.26 10^6/ul (4.70-6.10); RED CELL DISTRIBUTION WIDTH 18.3 % (11.5-14.5)
[2018-12-20 07:04] LABS: ALANINE AMINOTRANSFERASE 22 IU/L (13-69); ALBUMIN 3.6 g/dl (3.3-4.9); ALBUMIN/GLOBULIN RATIO 0.92; ALKALINE PHOSPHATASE 71 IU/L (42-121); ANION GAP 10 (5-13); ASPARTATE AMINO TRANSFERASE 29 IU/L (15-46); BILIRUBIN,INDIRECT 1.6 mg/dl (0-1.1); BILIRUBIN,TOTAL 1.6 mg/dl (0.2-1.3); BLOOD UREA NITROGEN 25 mg/dl (7-20); CARBON DIOXIDE 30 mmol/L (21-31); CHLORIDE 101 mmol/L (97-110); CREATININE 1.29 mg/dl (0.61-1.24); Estimated GFR > 60 mL/min (>60); GLUCOSE 122 mg/dl (70-220); PHOSPHORUS 4.8 mg/dl (2.5-4.9); POTASSIUM 4.4 mmol/L (3.5-5.1); SODIUM 141 mmol/L (135-144); TOTAL PROTEIN 7.5 g/dl (6.1-8.1)
[2018-12-20] MEDS: ONDANSETRON 4 MG INJ IV (07:20)
[2018-12-20] MEDS: ACETAMINOPHEN 325 MG TAB PO (07:20)
[2018-12-20] MEDS: SUMATRIPTAN 6 MG/0.5 ML INJ SC (07:31)
[2018-12-20] MEDS: ENOXAPARIN 40 MG/0.4 ML SYG SC (08:54)
[2018-12-20] MEDS: ASPIRIN 81 MG TAB PO (08:55)
[2018-12-20] MEDS: LOSARTAN 25 MG TAB PO (09:00)
[2018-12-20] MEDS: FUROSEMIDE 40 MG INJ IV ×3 (09:11→17:44)
[2018-12-20] MEDS: HYDROCODONE/APAP (10/325) TAB PO (23:16)
[2018-12-21] MEDS: FUROSEMIDE 40 MG INJ IV ×2 (06:45→17:16)
[2018-12-21] MEDS: ASPIRIN 81 MG TAB PO (08:10)
[2018-12-21] MEDS: LOSARTAN 25 MG TAB PO (08:11)
[2018-12-21] MEDS: ENOXAPARIN 40 MG/0.4 ML SYG SC (08:12)
[2018-12-21] MEDS: ACETAMINOPHEN 325 MG TAB PO (09:47)
[2018-12-21] MEDS: SUMATRIPTAN 50 MG TAB PO (10:23)
[2018-12-21] MEDS: HYDROCODONE/APAP (10/325) TAB PO (20:27)
[2018-12-22] MEDS: FUROSEMIDE 40 MG INJ IV (06:50)
[2018-12-22] MEDS: LOSARTAN 25 MG TAB PO (09:58)
[2018-12-22] MEDS: ASPIRIN 81 MG TAB PO (09:58)
[2018-12-22] MEDS: ENOXAPARIN 40 MG/0.4 ML SYG SC (10:03)
== END 2018-12-22 13:25 | disposition home or self-care (01) | DRG 292 ==
LOC: TEL 12:45 → E/R 11:04
DX: I11.0 Hypertensive heart disease with heart failure (principal); N17.9 Acute kidney failure, unspecified; Z68.41 Body mass index [BMI] 40.0-44.9, adult; I42.7 Cardiomyopathy due to drug and external agent; I50.23 Acute on chronic systolic (congestive) heart failure; E66.9 Obesity, unspecified; I42.0 Dilated cardiomyopathy; I25.2 Old myocardial infarction; F15.188 Other stimulant abuse with other stimulant-induced disorder; G43.909 Migraine, unspecified, not intractable, without status migrainosus; R79.89 Other specified abnormal findings of blood chemistry; Z87.891 Personal history of nicotine dependence; Z79.82 Long term (current) use of aspirin; Z98.84 Bariatric surgery status
CPT/HCPCS: 36415; 71045; 80053; 83036; 83690; 83735; 83880; 84100; 84443; 84484; 85025; 93005; 94660; 96374; 96375; 97161; 99285-25

== ENCOUNTER 2018-12-28 20:13 | Inpatient (IN) | payer MEDICAID ==
[2018-12-28 21:05] LABS: ADD MAN DIFF? NO
[2018-12-28] MEDS: ASPIRIN 325 MG TAB PO (21:06)
[2018-12-28] MEDS: FUROSEMIDE 20 MG INJ IV (21:06)
[2018-12-28] MEDS: NITROGLYCERIN 2% 1 GM OINT PKT TD (21:06)
[2018-12-28 21:11] LABS: WHITE BLOOD COUNT 4.9 10^3/ul (4.8-10.8)
[2018-12-28 21:11] LABS: BASOPHILS % 0.8 % (0.0-2.0); EOSINOPHILS # 0.1 10^3/ul (0.0-0.5); EOSINOPHILS % 1.6 % (0.0-7.0); HEMATOCRIT 43.5 % (42.0-52.0); HEMOGLOBIN 13.1 g/dl (14.0-18.0); LYMPHOCYTES # 0.9 10^3/ul (0.8-2.9); LYMPHOCYTES % 17.9 % (15.0-51.0); MEAN CORPUSCULAR HEMOGLOBIN 25.6 pg (29.0-33.0); MEAN CORPUSCULAR HGB CONC 30.1 g/dl (32.0-37.0); MEAN CORPUSCULAR VOLUME 85.1 fl (82.0-101.0); MEAN PLATELET VOLUME 8.9 fl (7.4-10.4); MONOCYTE # 0.6 10^3/ul (0.3-0.9); MONOCYTES % 12.2 % (0.0-11.0); NEUTROPHIL # 3.3 10^3/ul (1.6-7.5); NEUTROPHILS % 67.3 % (39.0-77.0); PLATELET COUNT 166 10^3/UL (140-415); RED BLOOD COUNT 5.11 10^6/ul (4.70-6.10); RED CELL DISTRIBUTION WIDTH 18.6 % (11.5-14.5)
[2018-12-28 21:36] LABS: INR 1.14; PROTIME 14.7 Sec (11.9-14.9); PT RATIO 1.1
[2018-12-28 21:37] LABS: PARTIAL THROMBOPLASTIN TIME 36.9 Sec (23.0-35.0)
[2018-12-28 21:38] LABS: ANION GAP 8 (5-13); BLOOD UREA NITROGEN 22 mg/dl (7-20); CALCIUM 8.6 mg/dl (8.4-10.2); CARBON DIOXIDE 32 mmol/L (21-31); CHLORIDE 97 mmol/L (97-110); CREATININE 1.07 mg/dl (0.61-1.24); Estimated GFR > 60 mL/min (>60); GLUCOSE 91 mg/dl (70-220); POTASSIUM 3.8 mmol/L (3.5-5.1); SODIUM 137 mmol/L (135-144)
[2018-12-28 21:50] LABS: B-TYPE NATRIURETIC PEPTIDE 8940 PG/ML (0-125)
[2018-12-28 21:54] LABS: TROPONIN-I 0.141 ng/ml (0.000-0.120)
[2018-12-28] MEDS ORDERED: ONDANSETRON 4 MG INJ IV (22:30)
[2018-12-29 03:42] LABS: CREATINE KINASE 151 IU/L (23-200)
[2018-12-29 03:54] LABS: CK INDEX 0.9; CK-MB 1.35 ng/ml (0.0-2.4); TROPONIN-I 0.109 ng/ml (0.000-0.120)
[2018-12-29] MEDS: ACETAMINOPHEN 325 MG TAB PO (04:05)
[2018-12-29] MEDS ORDERED: NITROGLYCERIN (SL) 0.4 MG TAB SL (05:30)
[2018-12-29] MEDS ORDERED: NACL 0.9% 3 ML SYG IV (05:30)
[2018-12-29] MEDS ORDERED: ONDANSETRON 4 MG INJ IV (05:30)
[2018-12-29 06:53] LABS: ADD MAN DIFF? NO
[2018-12-29 06:54] LABS: WHITE BLOOD COUNT 3.5 10^3/ul (4.8-10.8)
[2018-12-29 06:54] LABS: BASOPHIL # 0.1 10^3/ul (0.0-0.1); BASOPHILS % 1.7 % (0.0-2.0); EOSINOPHILS # 0.1 10^3/ul (0.0-0.5); HEMATOCRIT 42.5 % (42.0-52.0); HEMOGLOBIN 12.8 g/dl (14.0-18.0); LYMPHOCYTES # 0.9 10^3/ul (0.8-2.9); LYMPHOCYTES % 26.1 % (15.0-51.0); MEAN CORPUSCULAR HEMOGLOBIN 26.1 pg (29.0-33.0); MEAN CORPUSCULAR HGB CONC 30.1 g/dl (32.0-37.0); MEAN CORPUSCULAR VOLUME 86.6 fl (82.0-101.0); MEAN PLATELET VOLUME 9.1 fl (7.4-10.4); MONOCYTE # 0.5 10^3/ul (0.3-0.9); MONOCYTES % 13.4 % (0.0-11.0); NEUTROPHILS % 56.5 % (39.0-77.0); PLATELET COUNT 155 10^3/UL (140-415); RED BLOOD COUNT 4.91 10^6/ul (4.70-6.10); RED CELL DISTRIBUTION WIDTH 18.6 % (11.5-14.5)
[2018-12-29 07:20] LABS: ALANINE AMINOTRANSFERASE 22 IU/L (13-69); ALBUMIN 3.3 g/dl (3.3-4.9); ALBUMIN/GLOBULIN RATIO 0.97; ALKALINE PHOSPHATASE 71 IU/L (42-121); ANION GAP 6 (5-13); ASPARTATE AMINO TRANSFERASE 31 IU/L (15-46); BILIRUBIN,INDIRECT 0.8 mg/dl (0-1.1); BILIRUBIN,TOTAL 0.8 mg/dl (0.2-1.3); BLOOD UREA NITROGEN 21 mg/dl (7-20); CALCIUM 8.3 mg/dl (8.4-10.2); CARBON DIOXIDE 34 mmol/L (21-31); CHLORIDE 100 mmol/L (97-110); CREATININE 0.92 mg/dl (0.61-1.24); Estimated GFR > 60 mL/min (>60); GLUCOSE 88 mg/dl (70-220); MAGNESIUM 1.8 mg/dl (1.7-2.5); POTASSIUM 3.5 mmol/L (3.5-5.1); SODIUM 140 mmol/L (135-144); TOTAL PROTEIN 6.7 g/dl (6.1-8.1)
[2018-12-29] MEDS ORDERED: LOSARTAN 25 MG TAB PO (09:00)
[2018-12-29 09:51] LABS: CREATINE KINASE 133 IU/L (23-200)
[2018-12-29 10:04] LABS: CK INDEX 1.1; CK-MB 1.51 ng/ml (0.0-2.4)
[2018-12-29] MEDS: FUROSEMIDE 40 MG INJ IV ×2 (11:34→20:57)
[2018-12-29] MEDS: ASPIRIN 81 MG TAB PO (11:34)
[2018-12-29] MEDS: HEPARIN 5,000 UNIT/1 ML VIAL SC ×2 (11:38→21:06)
[2018-12-29] MEDS: LOSARTAN 25 MG TAB PO (11:39)
[2018-12-29] MEDS: AZITHROMYCIN 500MG/NS (PMX) 250 ML IVPB (14:43)
[2018-12-29] MEDS: CEFTRIAXONE 1 GM/50 ML (PMX) 50 ML IVPB (14:43)
[2018-12-30] MEDS: FUROSEMIDE 40 MG INJ IV ×2 (06:08→18:37)
[2018-12-30 06:47] LABS: ADD MAN DIFF? NO
[2018-12-30 06:58] LABS: WHITE BLOOD COUNT 3.6 10^3/ul (4.8-10.8)
[2018-12-30 06:58] LABS: BASOPHIL # 0.1 10^3/ul (0.0-0.1); BASOPHILS % 1.4 % (0.0-2.0); EOSINOPHILS # 0.1 10^3/ul (0.0-0.5); EOSINOPHILS % 1.7 % (0.0-7.0); HEMATOCRIT 42.1 % (42.0-52.0); HEMOGLOBIN 12.7 g/dl (14.0-18.0); LYMPHOCYTES # 0.7 10^3/ul (0.8-2.9); LYMPHOCYTES % 20.8 % (15.0-51.0); MEAN CORPUSCULAR HEMOGLOBIN 25.8 pg (29.0-33.0); MEAN CORPUSCULAR HGB CONC 30.2 g/dl (32.0-37.0); MEAN CORPUSCULAR VOLUME 85.6 fl (82.0-101.0); MEAN PLATELET VOLUME 9.5 fl (7.4-10.4); MONOCYTE # 0.4 10^3/ul (0.3-0.9); MONOCYTES % 11.8 % (0.0-11.0); NEUTROPHIL # 2.3 10^3/ul (1.6-7.5); PLATELET COUNT 158 10^3/UL (140-415); RED BLOOD COUNT 4.92 10^6/ul (4.70-6.10); RED CELL DISTRIBUTION WIDTH 18.5 % (11.5-14.5)
[2018-12-30 07:17] LABS: ANION GAP 8 (5-13); BLOOD UREA NITROGEN 25 mg/dl (7-20); CALCIUM 8.7 mg/dl (8.4-10.2); CARBON DIOXIDE 31 mmol/L (21-31); CHLORIDE 96 mmol/L (97-110); Estimated GFR > 60 mL/min (>60); GLUCOSE 110 mg/dl (70-220); MAGNESIUM 1.9 mg/dl (1.7-2.5); PHOSPHORUS 4.7 mg/dl (2.5-4.9); POTASSIUM 4.1 mmol/L (3.5-5.1); SODIUM 135 mmol/L (135-144)
[2018-12-30 07:20] LABS: CHOL/HDL RATIO 4.1 RATIO; HDL CHOLESTEROL 19 mg/dl (28-63); LDL CHOLESTEROL,CALCULATED 49 mg/dl; TRIGLYCERIDES 50 mg/dl (0-149)
[2018-12-30 07:20] LABS: CHOLESTEROL 78 mg/dl (100-200)
[2018-12-30 07:23] LABS: CK INDEX 1.2; CK-MB 1.33 ng/ml (0.0-2.4); CREATINE KINASE 115 IU/L (23-200); TROPONIN-I 0.077 ng/ml (0.000-0.120)
[2018-12-30] MEDS: LOSARTAN 25 MG TAB PO (09:00)
[2018-12-30] MEDS: CEFTRIAXONE 1 GM/50 ML (PMX) 50 ML IVPB (09:21)
[2018-12-30] MEDS: ASPIRIN 81 MG TAB PO (09:22)
[2018-12-30] MEDS: METOLAZONE 2.5 MG TAB PO (09:27)
[2018-12-30] MEDS: HEPARIN 5,000 UNIT/1 ML VIAL SC ×2 (10:17→22:10)
[2018-12-30] MEDS: AZITHROMYCIN 500MG/NS (PMX) 250 ML IVPB (11:51)
[2018-12-31] MEDS: LEVALBUTEROL (NEB) 0.63 MG/3 ML AMP HHN ×2 (00:15→20:42)
[2018-12-31] MEDS: IPRATROPIUM (NEB) 0.5 MG/2.5 ML AMP NEB ×2 (00:15→20:42)
[2018-12-31] MEDS: AZITHROMYCIN 250 MG TAB PO (06:19)
[2018-12-31] MEDS: FUROSEMIDE 40 MG INJ IV ×2 (06:20→17:33)
[2018-12-31 06:43] LABS: ADD MAN DIFF? NO
[2018-12-31 06:55] LABS: BASOPHIL # 0.1 10^3/ul (0.0-0.1); BASOPHILS % 1.3 % (0.0-2.0); EOSINOPHILS # 0.1 10^3/ul (0.0-0.5); EOSINOPHILS % 1.6 % (0.0-7.0); HEMATOCRIT 43.9 % (42.0-52.0); HEMOGLOBIN 13.1 g/dl (14.0-18.0); LYMPHOCYTES # 1.3 10^3/ul (0.8-2.9); LYMPHOCYTES % 29.7 % (15.0-51.0); MEAN CORPUSCULAR HEMOGLOBIN 25.5 pg (29.0-33.0); MEAN CORPUSCULAR HGB CONC 29.8 g/dl (32.0-37.0); MEAN CORPUSCULAR VOLUME 85.6 fl (82.0-101.0); MEAN PLATELET VOLUME 10.2 fl (7.4-10.4); MONOCYTE # 0.5 10^3/ul (0.3-0.9); MONOCYTES % 11.1 % (0.0-11.0); NEUTROPHIL # 2.5 10^3/ul (1.6-7.5); NEUTROPHILS % 56.1 % (39.0-77.0); PLATELET COUNT 183 10^3/UL (140-415); RED BLOOD COUNT 5.13 10^6/ul (4.70-6.10); RED CELL DISTRIBUTION WIDTH 18.5 % (11.5-14.5)
[2018-12-31 06:55] LABS: WHITE BLOOD COUNT 4.5 10^3/ul (4.8-10.8)
[2018-12-31 07:09] LABS: ANION GAP 8 (5-13); BLOOD UREA NITROGEN 27 mg/dl (7-20); CALCIUM 8.3 mg/dl (8.4-10.2); CARBON DIOXIDE 31 mmol/L (21-31); CHLORIDE 97 mmol/L (97-110); CREATININE 1.18 mg/dl (0.61-1.24); Estimated GFR > 60 mL/min (>60); GLUCOSE 121 mg/dl (70-220); POTASSIUM 3.7 mmol/L (3.5-5.1); SODIUM 136 mmol/L (135-144)
[2018-12-31] MEDS: CEFTRIAXONE 1 GM/50 ML (PMX) 50 ML IVPB (08:16)
[2018-12-31] MEDS: METOLAZONE 2.5 MG TAB PO ×2 (08:16→20:39)
[2018-12-31] MEDS: ASPIRIN 81 MG TAB PO (08:16)
[2018-12-31] MEDS: LOSARTAN 25 MG TAB PO (08:18)
[2018-12-31] MEDS: HEPARIN 5,000 UNIT/1 ML VIAL SC ×2 (09:08→20:39)
[2018-12-31] MEDS: ACETAMINOPHEN 325 MG TAB PO (15:05)
[2019-01-01] MEDS: AZITHROMYCIN 250 MG TAB PO ×2 (06:22→08:36)
[2019-01-01] MEDS: FUROSEMIDE 40 MG INJ IV (06:24)
[2019-01-01 07:24] LABS: ANION GAP 8 (5-13); BLOOD UREA NITROGEN 31 mg/dl (7-20); CALCIUM 8.6 mg/dl (8.4-10.2); CARBON DIOXIDE 33 mmol/L (21-31); CHLORIDE 95 mmol/L (97-110); CREATININE 1.11 mg/dl (0.61-1.24); Estimated GFR > 60 mL/min (>60); GLUCOSE 85 mg/dl (70-220); POTASSIUM 3.4 mmol/L (3.5-5.1); SODIUM 136 mmol/L (135-144)
[2019-01-01] MEDS: CEFTRIAXONE 1 GM/50 ML (PMX) 50 ML IVPB (08:36)
[2019-01-01] MEDS: METOLAZONE 2.5 MG TAB PO (08:37)
[2019-01-01] MEDS: ASPIRIN 81 MG TAB PO (08:37)
[2019-01-01] MEDS: HEPARIN 5,000 UNIT/1 ML VIAL SC (08:54)
[2019-01-01] MEDS: POTASSIUM CHLORIDE (SR) 20 MEQ TAB PO (10:31)
== END 2019-01-01 10:55 | disposition home or self-care (01) | DRG 280 ==
LOC: E/R 20:13 → 6WM 22:10
DX: I11.0 Hypertensive heart disease with heart failure (principal); J18.9 Pneumonia, unspecified organism; I21.A1 Myocardial infarction type 2; I50.23 Acute on chronic systolic (congestive) heart failure; I42.0 Dilated cardiomyopathy; I42.7 Cardiomyopathy due to drug and external agent; F15.188 Other stimulant abuse with other stimulant-induced disorder; Z91.19 Patient's noncompliance with other medical treatment and regimen; D64.9 Anemia, unspecified; D72.819 Decreased white blood cell count, unspecified; Z79.82 Long term (current) use of aspirin; Z98.84 Bariatric surgery status
CPT/HCPCS: 36415; 71045; 80048; 80053; 80061; 82550; 82553; 83735; 83880; 84100; 84484; 85025; 85610; 85730; 87045; 87075; 93005; 93970; 94640; 94664; 96374; 99285-25